=== PATIENT | female | born 1970 | race Caucasian/White ===

== ENCOUNTER → 2016-08-28 | Outpatient (CLI) | payer OTHER ==
[~2016-08-28] MED LIST: AMLO10TA PO; B-COTAB27 PO; CALC600T10 PO; CELE-19 PO; CRES20TA PO; CYCL10TA PO; DULC5TAB PO; HYDR-3713 PO; LISI-538 PO; METF-415 PO; METHACHOLINE KIT (J7674) INH ONE; MILKSUS PO; MYLI40DR PO; NEUR600T PO; OXYC-517 PO; PRIL40CA PO; SENO8.6T2 PO; TYLE325T5 PO; VITA500055 PO; VITMTA PO
== END ==
LOC: M CARPUL 13:33
PROVIDERS: ATTEND Internal Medicine Pulmonary Disease
DX: R06.00 Dyspnea, unspecified (principal)

== ENCOUNTER → 2016-09-13 | Outpatient (CLI) | payer OTHER ==
[~2016-09-13] MED LIST changes: -METHACHOLINE KIT (J7674) INH ONE
[2016-09-13 19:08] LABS: ANION GAP 8 MEQ/L (8-16); BLOOD UREA NITROGEN 10 MG/DL (7-18); CALCIUM LEVEL 8.6 MG/DL (8.5-10.1); CARBON DIOXIDE LEVEL 26 MEQ/L (21-32); CHLORIDE LEVEL 105 MEQ/L (98-107); CHOLESTEROL LEVEL 187 MG/DL (<200); CREATININE FOR GFR 0.77 MG/DL (0.55-1.02); GLOMERULAR FILTRATION RATE > 60.0 (>58); GLUCOSE, FASTING 74 MG/DL (70-105); POTASSIUM SERUM 4.3 MEQ/L (3.5-5.1); SODIUM LEVEL 139 MEQ/L (136-145); TRIGLYCERIDES LEVEL 182 MG/DL (<150)
== END ==
LOC: M WUC 11:10
PROVIDERS: ATTEND Physician Assistant Medical
DX: E78.00 Pure hypercholesterolemia, unspecified (principal); E55.9 Vitamin D deficiency, unspecified; E11.65 Type 2 diabetes mellitus with hyperglycemia

== ENCOUNTER → 2016-09-17 | Outpatient (REF) | payer OTHER | LOC: M LAB REF 12:28 | PROVIDERS: ATTEND Physician Assistant Medical | DX: E78.00 Pure hypercholesterolemia, unspecified (principal); E55.9 Vitamin D deficiency, unspecified; E11.65 Type 2 diabetes mellitus with hyperglycemia ==

== ENCOUNTER 2016-10-26 11:58 | Emergency (ER) | payer OTHER ==
[~2016-10-26] VITALS: Ht 172.7 cm; Wt 98.9 kg
[2016-10-26] MEDS ORDERED: NS 1,000 ML IV ONE (13:30)
[2016-10-26 13:38] LABS: CONTROL LINE UCG INT CTR LINE PRESENT
[2016-10-26 13:59] LABS: BASO % 0.2 % (0.0-1.0); EOS # 0.4 K/mm3 (0.0-0.50); EOS % 3.5 % (0.0-3.0); LARGE UNSTAINED CELL # 0.2 K/mm3 (0.0-0.4); LARGE UNSTAINED CELL % 1.4 % (0.0-4.0); LYMPH % 23.2 % (24.0-44.0); MEAN CORPUSCULAR HEMOGLOBIN 27.7 pg (27.0-33.0); MEAN CORPUSCULAR HGB CONC 31.9 g/dl (32.0-36.5); MONO # 0.4 K/mm3 (0.0-0.8); MONO % 2.9 % (0.0-5.0); NEUTROPHILS # 8.9 K/mm3 (1.8-7.7); NEUTROPHILS % 68.9 % (36.0-66.0); PLATELET COUNT, AUTOMATED 413 k/mm3 (150-450); WHITE BLOOD COUNT 12.9 K/mm3 (4.0-10.0)
[2016-10-26 14:19] LABS: ALBUMIN 3.1 GM/DL (3.2-5.2); ALBUMIN/GLOBULIN RATIO 0.61 (1.00-1.93); ALKALINE PHOSPHATASE 93 U/L (45-117); ALT/SGPT 16 U/L (12-78); ANION GAP 7 MEQ/L (8-16); AST/SGOT 16 U/L (15-37); BILIRUBIN,DIRECT < 0.1 MG/DL (0.0-0.2); BILIRUBIN,TOTAL 0.3 MG/DL (0.2-1.0); BLOOD UREA NITROGEN 11 MG/DL (7-18); CALCIUM LEVEL 8.7 MG/DL (8.5-10.1); CARBON DIOXIDE LEVEL 26 MEQ/L (21-32); CHLORIDE LEVEL 103 MEQ/L (98-107); CREATININE FOR GFR 0.95 MG/DL (0.55-1.02); GLOMERULAR FILTRATION RATE > 60.0 (>58); GLUCOSE, FASTING 78 MG/DL (70-105); POTASSIUM SERUM 3.8 MEQ/L (3.5-5.1); SODIUM LEVEL 136 MEQ/L (136-145); TOTAL PROTEIN 8.2 GM/DL (6.4-8.2)
[2016-10-26] MEDS ORDERED: ISOVUE-370 76% 100ML VIAL (Q9967) As Ordered ONE (14:24)
[2016-10-26] MEDS ORDERED: KETOROLAC 30 MG/ML VIAL (J1885) IV ONE (15:15)
[2016-10-26 15:31] VITALS: BP 112/77
--- NOTE | 2016-10-26 16:05 | REP ---
CT ABDOMEN PELVIS WITH IV CONTRAST: 10/26/2016. Comparison: 06/19/2015. Clinical history: Right lower quadrant pain. Technique: The patient received a bolus 100 mL some [id number] scanning through the abdomen pelvis with coronal and sagittal reconstructions. Findings:CT abdomen: Lung bases were clear. Heart is not enlarged. There is no pericardial thickening or effusion. Liver and spleen show no focal mass. There are clips from prior cholecystectomy. No adjacent ascites. There is one tiny hepatic hypodensity about 5 mm right hepatic lobe near the dome of the diaphragm and unchanged from 2015. No ascites about the liver or spleen. Adrenal glands are normal. Pancreas shows no mass, ductal dilatation or inflammatory change. No adjacent fluid/adenopathy. Kidneys shows more horizontal orientation of the right kidney rotated on this short axis. The kidney measures 11.5 cm. Right kidney 11.6 cm. Both measured on the sagittal reconstructions. No hydronephrosis, stone or solid mass. Small bowel loops without dilatation, partly fluid-filled. No inflammatory changes or infiltration of the mesentery. The aorta is without aneurysm. No pathologic sized periaortic or mesenteric adenopathy. Colon shows stool and gas without signs of colitis or diverticulitis in the abdomen proper. A few scattered diverticula in the left colon. Bone windows show minor degenerative changes without compression deformity of destructive lesion. There is no spondylolysis or spondylolisthesis. Visualized ribs show no focal lesion. CT pelvis: Sacrum, SI joints, and iliac bones were intact and acetabula show as rim osteophytes. Degenerative changes to the lumbosacral junction and symphysis pubis, pubic rami and the hips with no gross abnormality. Uterus anteverted, not enlarged. Bladder only partially filled but without dilatation, stone or mass. No wall thickening. Adnexa appear symmetric. There is again suggested be a cyst in the right adnexal region 2.9 cm. On the previous study it measured about a 4.3 cm. No pelvic free fluid in the cul-de-sac. No pelvic adenopathy. A few scattered diverticula in the left colon and sigmoid without signs of colitis or diverticulitis. No ventral or inguinal hernia nor pathologic sized inguinal adenopathy. Impression: 1. 2.9 cm right adnexal cyst likely ovarian without pelvic free fluid. This is smaller than the 4.7 cm cyst that I measure on the previous study. No ascites, free air, or adenopathy. 2. No pelvic free fluid, adenopathy or mass in the pelvis. Uterus unremarkable, anteverted and the bladder intact. 3. No renal, ureteral or bladder stone. 4. Status post cholecystectomy, the liver, spleen, adrenal glands and kidneys are without acute finding. Signed by Dima Velazquez MD 10/26/2016 04:34 P
== END 2016-10-26 15:33 | disposition home or self-care (01) ==
LOC: M ED 13:05
DX: R10.31 Right lower quadrant pain (principal); N83.01 Follicular cyst of right ovary; R19.7 Diarrhea, unspecified; I10 Essential (primary) hypertension; Z98.890 Other specified postprocedural states; Z79.899 Other long term (current) drug therapy; Z79.84 Long term (current) use of oral hypoglycemic drugs
CPT/HCPCS: 74177; 80048; 80076; 81001; 83690; 84703; 85025; 96374; 99282; J1885; Q9967

== ENCOUNTER → 2016-12-14 | Outpatient (CLI) | payer OTHER ==
--- NOTE | 2016-12-14 16:15 | REP ---
PELVIC ULTRASOUND: Real-time sonographic evaluation of the pelvis performed utilizing transabdominal and endovaginal technique. The bladder measures 5.4 x 4.0 x 6.1 cm. Uterus measures 9.0 x 3.6 x 4.4 cm. Endometrial thickness is 4 mm with no endometrial fluid collection. Right ovary measures 3.1 x 1.6 x 1.9 cm and left ovary 3.9 x 2.4 x 2.9 cm. Two follicles in the right ovary measure 17 and 5 mm. A dominant follicle in the left ovary measures 2.1 cm. There is no other evidence of adnexal mass or free fluid. IMPRESSION: Essentially negative pelvic ultrasound. Similar findings to prior study of 10/28/2015.
== END ==
LOC: M WHC 13:57
PROVIDERS: ATTEND Nurse Practitioner Family
DX: N83.201 Unspecified ovarian cyst, right side (principal)

== ENCOUNTER 2017-04-04 19:36 | Observation (INO) | payer OTHER ==
[~2017-04-04] VITALS: Ht 172.7 cm; Wt 97.7 kg
[~2017-04-04 19:36] MED LIST changes: -CALC600T10 PO; +CALC600T31 PO; -CELE-19 PO; +CELE1CAP4 PO; -SENO8.6T2 PO; +SENO8.6T5 PO
[2017-04-04] MEDS ORDERED: TRUL0.5I SC (19:48)
[2017-04-05] MEDS ORDERED: GASTROGRAFIN SOLUTION 30ML (Q9963) PO ONE (00:45)
[2017-04-05] MEDS ORDERED: KETOROLAC 30 MG/ML VIAL (J1885) IV ONE (01:00)
[2017-04-05] MEDS ORDERED: MORPHINE 4 MG/ML 1ML SYRINGE IV ONE (01:00)
[2017-04-05] MEDS ORDERED: GASTROGRAFIN SOLUTION 30ML PO ONE (01:15)
[2017-04-05 01:22] LABS: BASO # 0.1 K/mm3 (0.0-0.2); BASO % 0.5 % (0.0-1.0); EOS # 0.4 K/mm3 (0.0-0.50); EOS % 3.2 % (0.0-3.0); LARGE UNSTAINED CELL # 0.2 K/mm3 (0.0-0.4); LARGE UNSTAINED CELL % 1.6 % (0.0-4.0); LYMPH % 22.7 % (24.0-44.0); MEAN CORPUSCULAR VOLUME 85.5 fl (80.0-96.0); MONO # 0.5 K/mm3 (0.0-0.8); MONO % 3.7 % (0.0-5.0); NEUTROPHILS # 8.9 K/mm3 (1.8-7.7); NEUTROPHILS % 68.4 % (36.0-66.0); PLATELET COUNT, AUTOMATED 396 k/mm3 (150-450)
[2017-04-05 01:43] LABS: ALBUMIN 2.7 GM/DL (3.2-5.2); ALBUMIN/GLOBULIN RATIO 0.56 (1.00-1.93); ALKALINE PHOSPHATASE 85 U/L (45-117); ALT/SGPT 16 U/L (12-78); AMYLASE 36 U/L (25-115); ANION GAP 3 MEQ/L (8-16); AST/SGOT 10 U/L (15-37); BILIRUBIN,DIRECT < 0.1 MG/DL (0.0-0.2); BILIRUBIN,TOTAL 0.2 MG/DL (0.2-1.0); BLOOD UREA NITROGEN 7 MG/DL (7-18); CALCIUM LEVEL 8.5 MG/DL (8.5-10.1); CARBON DIOXIDE LEVEL 30 MEQ/L (21-32); CHLORIDE LEVEL 105 MEQ/L (98-107); GLOMERULAR FILTRATION RATE > 60.0 (>58); GLUCOSE, FASTING 108 MG/DL (70-105); POTASSIUM SERUM 4.1 MEQ/L (3.5-5.1); SODIUM LEVEL 138 MEQ/L (136-145); TOTAL PROTEIN 7.5 GM/DL (6.4-8.2)
[2017-04-05] MEDS ORDERED: HYDROmorphone HCL 1 MG/ML SYRINGE (J1170) IV ONE ×2 (02:15→04:15)
[2017-04-05] MEDS ORDERED: ISOVUE-370 76% 100ML VIAL (Q9967) As Ordered ONE (02:39)
--- NOTE | 2017-04-05 03:50 | REPUSA ---
CLINICAL HISTORY: Abdominal pain. TECHNIQUE: Multiple axial, sagittal and coronal CT images were obtained through the abdomen and pelvi s after administration of oral and intravenous contrast material. COMMENTS: Comparison to the prior exam on 10/26/2016. 4.1 cm left ovarian cyst. Fat stranding in the anterior aspect of the pelvic fat. The liver is of uniform attenuation without mass or defect. There is no intra or extrahepatic biliary ductal dilatation. The spleen is normal. The gallbladder is surgically absent. The pancreas is of no rmal contour and attenuation characteristics. There is no evidence of adrenal mass. Both kidneys demonstrate prompt and equal nephrograms. The kidneys are normal in size, shape and conf iguration. There is no evidence of renal or ureteral mass. No renal or ureteral calculi are identifie d. There is no hydroureter or hydronephrosis. No evidence for appendicitis. There is no bowel wall thickening. No evidence for small or large ebony l obstruction. There is no evidence of abdominal ascites or lymphadenopathy. There is no evidence of intrinsic or extrinsic bladder mass. There is no pelvic ascites or lymphadeno tawanda. Images of the lung bases show no evidence of pleural or parenchymal mass. There are no pleural effusi ons. The bony structures are free of lytic or blastic lesions. Multilevel degenerative changes are seen in volving the thoracolumbar spine. Scattered calcifications are seen involving the aorta and major bran ches compatible with atherosclerosis. IMPRESSION: Fat stranding in the anterior aspect of the pelvic fat. Probably secondary to omental infarction. Thi s was not present on prior exam. Unremarkable bowels. Left ovarian cyst. This was not present on prior exam. Thank you for your kind referral of this patient.
[2017-04-05] MEDS ORDERED: NS 1,000 ML IV ONE (04:15)
[2017-04-05] MEDS ORDERED: ALBU17IN INH (04:52)
[2017-04-05] MEDS ORDERED: MAGN500T2 PO (04:52)
[2017-04-05] MEDS ORDERED: METF-699 PO (04:52)
[2017-04-05] MEDS ORDERED: VITA10006 PO (04:52)
[2017-04-05] MEDS ORDERED: ZINC100T2 PO (04:52)
[2017-04-05] MEDS ORDERED: ARNU1INH3 INH (04:52)
[2017-04-05] MEDS ORDERED: LISI30TA4 PO (04:52)
[2017-04-05] MEDS ORDERED: LISINOPRIL 10 MG TAB PO ONE (05:00)
[2017-04-05] MEDS ORDERED: ALBUTEROL 90 MCG/ACT 8GM HFA INHALER INH PRN (05:00)
[2017-04-05] MEDS ORDERED: ACETAMINOPHEN TAB 650MG DOSE (2X325MG) PO PRN (05:00)
[2017-04-05] MEDS ORDERED: ONDANSETRON 4MG/2ML VIAL (J2405) IV PRN (05:00)
--- NOTE | 2017-04-05 05:21 | HPE ---
DATE OF ADMISSION: 04/04/2017 HISTORY OF PRESENT ILLNESS: A 46-year-old obese white female who came to the emergency room with abdominal pain. Pain she has is mostly centered in the right lower quadrant. Symptoms began last Saturday while at a golf tournament. They began insidiously and have reached their maximum intensity but have not abated at all. She came to the emergency room this evening because the pain was interfering with her ability to do her daily activities including perform her job. She has had some nausea but no vomiting. She has had no bowel symptoms. She did have a CT of the abdomen and pelvis which showed fat stranding in the anterior aspect of the pelvic fat, probably secondary to omental infarction. Incidentally, she has not had any fever or chills. Her blood pressure is stable (history of hypertension), and her laboratory is unremarkable. Her white blood cell (WBC) count is 13,000. She does have mild normochromic, normocytic anemia. MEDICATIONS: She takes a lot of vitamin supplements - lisinopril 20 mg a day - metformin 2000 mg a day which she has not taken this week I believe - multivitamin - Crestor 20 mg - Trulicity weekly which she takes on Saturday or Saturday PAST MEDICAL/SURGICAL HISTORY: 1. Diabetes. 2. Hypertension. 3. Hyperlipidemia. 4. Detached retina. 5. 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 6. Arthroscopic surgery on her knee. 7. History of ovarian cyst. 8. She had mesh for bladder incontinence, which has been removed partially. 9. She has had cholecystectomy. ALLERGIES: None to medications. SOCIAL HISTORY: No alcohol or tobacco, except alcohol maybe on Saturday nights. FAMILY HISTORY: Dad had a myocardial infarction (OR) at age 40. Grandmother had metastatic breast cancer. Grandfather had a gastrointestinal (GI) malignancy. REVIEW OF SYSTEMS: GENERAL: No fever or chills. HEENT: Negative. CARDIOPULMONARY: Negative. GI: As discussed above. GENITOURINARY (): Chronic urinary incontinence. MUSCULOSKELETAL: Negative. VASCULAR: Negative. HEMATOLOGIC: Negative. PSYCHIATRIC: Negative. DERMATOLOGIC: Negative. PHYSICAL EXAMINATION: VITAL SIGNS: Blood pressure is 150/70, pulse 84 and regular, respirations are 16, temperature afebrile. GENERAL APPEARANCE: Obese white female. HEENT: Unremarkable. Dentition is good. NECK: Full, difficult to assess neck veins. Carotid upstrokes are normal. No bruits. HEART: Regular with a systolic murmur. CHEST: Clear. ABDOMEN: Some mild tenderness to deep palpation right lower quadrant; otherwise unremarkable. No peritoneal signs. EXTREMITIES: Without clubbing, cyanosis or edema. NEUROLOGIC: Intact. IMPRESSION/PLAN: 1. Omental infarction. Plan intravenous (IV) fluids and pain control. 2. Diabetes. Her metformin is on hold. She last took Trulicity on Saturday of this past week. Will check fingersticks twice a day. Her diabetes seems to be very mild. In fact, her admitting sugar is only 108. 3. Hypertension. Will continue her lisinopril. 4. Lipids. She is on Crestor. We will hold that until discharge. 5. Ovarian cyst. Incidental finding. 6. Mild anemia. Follows with Dr. Walden.
[2017-04-05 05:46] VITALS: BP 156/77
[2017-04-05 06:00] VITALS: BP 156/77
[2017-04-05 06:30] LABS: MEAN CORPUSCULAR HEMOGLOBIN 29.2 pg (27.0-33.0); MEAN CORPUSCULAR HGB CONC 34.2 g/dl (32.0-36.5); MEAN CORPUSCULAR VOLUME 85.5 fl (80.0-96.0); RED CELL DISTRIBUTION WIDTH 13.1 % (11.5-14.5); WHITE BLOOD COUNT 11.9 K/mm3 (4.0-10.0)
[2017-04-05 06:49] LABS: ANION GAP 10 MEQ/L (8-16); BLOOD UREA NITROGEN 8 MG/DL (7-18); CALCIUM LEVEL 7.8 MG/DL (8.5-10.1); CARBON DIOXIDE LEVEL 22 MEQ/L (21-32); CHLORIDE LEVEL 109 MEQ/L (98-107); GLOMERULAR FILTRATION RATE > 60.0 (>58); GLUCOSE, FASTING 112 MG/DL (70-105); POTASSIUM SERUM 4.1 MEQ/L (3.5-5.1); SODIUM LEVEL 141 MEQ/L (136-145)
[2017-04-05] MEDS: NORCO, ANEXSIA 5/325MG TABLET (HYDROcodone/ACETAMINOPHEN) PO PRN ×4 (06:52→22:33)
[2017-04-05] MEDS ORDERED: FLUTICASONE HFA 220 MCG 12 GM INHALER (FLOVENT) INH SCH (09:00)
--- NOTE | 2017-04-05 09:20 | CR.PDOC ---
[facility] Consultation Consultation DATE OF CONSULTATION: Apr 04, 2017 at 19:36 REFERRING PROVIDER: Dr. Cantor ATTENDING PHYSICIAN: Dr. Cronin REASON FOR CONSULTATION/CHIEF COMPLAINT: Omental infarction. HISTORY OF PRESENT ILLNESS: 46-year-old white female came to emergency room with abdominal pain. The pain is located on her left side of her abdomen. The pain started Saturday morning, as a crampy abdominal pain that progressively worsened throughout the day. She later attended a golf tournament and her pain worsened as the tournament processed. Pain is made worse with lying still, moving, going up stairs, coughing, bending over and, sneezing. She came to emergency room because the pain was affecting her activities of daily living. While in the emergency room, a CT abdomen and pelvis showed fat stranding in the anterior aspect of, probable secondary omental infarction. ALLERGIES: Please see below. HOME MEDICATIONS: Please see below. PAST MEDICAL HISTORY: Diabetes Hypertension Hyperlipidemia Detached retina PAST SURGICAL HISTORY: Arthroscopic surgery of the jaw. TMJ Arthroscopic surgery of the knee History ovarian cysts She had a mesh for bladder incontinence which has been removed partially Cholecystectomy FAMILY HISTORY: Father had [place] at age 40, grandmother had metastatic breast cancer. Grandfather had gastrointestinal malignancies SOCIAL HISTORY: No tobacco, alcohol may be on Saturday nights REVIEW OF SYSTEMS: CONSTITUTIONAL: Nice fevers, chills, night sweats CARDIOVASCULAR: Denies any chest pains denies palpitation RESPIRATORY: Denies any breathing difficulties MUSCULOSKELETAL; admits to abdominal pain GASTROINTESTINAL: Denies any urinary issues SKIN: No rashes or bruises HEMATOLOGIC/LYMPHATIC: Denies any bleeding disorder ALLERGIC/IMMUNOLOGIC: Mrs. cheung denies allergies, leading to violent sneezes PHYSICAL EXAMINATION: VITAL SIGNS: Please see below. GENERAL APPEARANCE: Alert, oriented, resting comfortably in bed. RESPIRATORY: Clear to auscultate bilaterally anterior and posterior CARDIOVASCULAR: S1 and S2 present, no murmurs, rubs, no gallops ABDOMEN: Tender to palpate on left abdominal rectus muscle. Pain is throughout the entire left abdominal rectus muscle but it is worse in the lower rectus EXTREMITIES: Moving, no deformities, no swelling. NEUROLOGICAL: No tingling or numbness LABORATORY DATA: Please see below. IMAGING: CT Abdomen: Fat stranding in the anterior aspect of the pelvic fat. Probably secondary to omental infarction. This was not present on prior exam. Unremarkable bowels. Left ovarian cyst. This was not present on prior exam. ASSESSMENT/PLAN: 46-year-old woman presents with abdominal pain, that started on Saturday and has been progressively getting worse. Pain seemed to have been exacerbated by golfing tournament. CT showed fat stranding on the anterior aspect of the pelvic fat, probable secondary to omental infarction. Etiology of the pain could possibly be musculoskeletal in origin, perhaps an left abdominal rectus muscle tear, quite possibly from sneezing. She describes her sneezes as whole body violent squeezes. The tear could have subsequently have been made worse by her golfing. And thus leading to a slight hematoma on the anterior aspect of her abdomin. Or the fat stranding, possibly have stemmed from an omental infarction. In either case there are no surgical intervention recommended at this point. Both of these situations would be treated conservatively, as the pain will resolve over time. My recommendations at this point are pain control, while monitored for signs of infection. If patient develop a fever, or an increased white count, or anyother signs of infections.This could mean an abscess formation in the abdomen. At which point a CT guided drainage abscess would be recommended. No antibiotics are recommended at this point. Patient can be discharged when comfortable and there are no signs of infection. Follow-up when necessary. Thanks for involving Surgery in the care of this patient Vital Signs/I&O Vital Signs Date Time Temp Pulse Resp B/P (MAP) Pulse Ox O2 Delivery O2 Flow Rate FiO2 04/05/17 07:22 16 04/05/17 06:55 Room Air 04/05/17 06:53 156/77 04/05/17 06:00 97.0 86 98 I&O- Last 24 Hours up to 6 AM 04/06/17 06:00 Intake Total 360 ml Balance 360 ml Laboratory Data Labs 24H Laboratory Tests 2 04/05/17 01:07: White Blood Count 13.0H, Red Blood Count 4.09, Hemoglobin 11.9L, Hematocrit 35.0L, Mean Corpuscular Volume 85.5, Mean Corpuscular Hemoglobin 29.0, Mean Corpuscular Hemoglobin Concent 34.0, Red Cell Distribution Width 13.0, Platelet Count 396, Neutrophils (%) (Auto) 68.4H, Lymphocytes (%) (Auto) 22.7L, Monocytes (%) (Auto) 3.7, Eosinophils (%) (Auto) 3.2H, Basophils (%) (Auto) 0.5 , Neutrophils # (Auto) 8.9H, Lymphocytes # (Auto) 3.0, Monocytes # (Auto) 0.5, Eosinophils # (Auto) 0.4, Basophils # (Auto) 0.1, Large Unclassified Cells % 1.6 , Large Unclassified Cells # 0.2, Anion Gap 3L, Glomerular Filtration Rate > 60.0, Lactic Acid Level 0.6, Calcium Level 8.5, Aspartate Amino Transf (AST/SGOT ) 10L, Alanine Aminotransferase (ALT/SGPT) 16, Alkaline Phosphatase 85, Total Bilirubin 0.2, Direct Bilirubin < 0.1, Total Protein 7.5, Albumin 2.7L, Albumin/ Globulin Ratio 0.56L, Amylase Level 36, Lipase 102 04/05/17 01:19: Urine Appearance CLEAR, Urine Color STRAW, Urine pH 6.0, Urine Specific [place] 1.004, Urine Protein NEGATIVE, Urine Glucose (UA) NEGATIVE, Urine Ketones NEGATIVE, Urine Urobilinogen 0.2, Urine Bilirubin NEGATIVE, Urine Leukocyte Esterase 1+H, Urine Blood 1+H, Urine Nitrite NEGATIVE, Urine WBC (Auto) 8H, Urine RBC (Auto) 2, Urine Hyaline Casts (Auto) 0, Urine Bacteria (Auto) 3+H, Urine Squamous Epithelial Cells 2, Urine Amorphous Sediment SMALLH, Urine Sperm (Auto) 04/05/17 06:07: Anion Gap 10, Glomerular Filtration Rate > 60.0, Calcium Level 7.8L, Blood Urea Nitrogen 8, Creatinine 0.70, Sodium Level 141, Potassium Level 4.1, Chloride Level 109H, Carbon Dioxide Level 22 CBC/BMP Laboratory Tests 04/05/17 01:07 Red Blood Count 4.09, Mean Corpuscular Volume 85.5, Mean Corpuscular Hemoglobin 29.0, Mean Corpuscular Hemoglobin Concent 34.0, Red Cell Distribution Width 13.0 , Neutrophils (%) (Auto) 68.4 H, Lymphocytes (%) (Auto) 22.7 L, Monocytes (%) ( Auto) 3.7, Eosinophils (%) (Auto) 3.2 H, Basophils (%) (Auto) 0.5, Neutrophils # (Auto) 8.9 H, Lymphocytes # (Auto) 3.0, Monocytes # (Auto) 0.5, Eosinophils # (Auto) 0.4, Basophils # (Auto) 0.1 04/05/17 06:07 Red Blood Count 3.93 L, Mean Corpuscular Volume 85.5, Mean Corpuscular Hemoglobin 29.2, Mean Corpuscular Hemoglobin Concent 34.2, Red Cell Distribution Width 13.1, Calcium Level 7.8 L Allergies Coded Allergies: No Known Allergies (Unverified , 06/15/15) Home Medications Scheduled (B-Complex) 1 Tab Tab, 1 TAB PO DAILY, (Reported) (Trulicity) 1.5 Mg/0.5 Ml Inj, 1.5 MG SC ASDIRECTED, (Reported) ONCE A WEEK ON EITHER SATURDAY OR SATURDAY (Arnuity Ellipta) 200 Mcg/Act Inh, 200 MCG INH DAILY, (Reported) Ascorbic Acid (Vitamin C) 1,000 Mg Tab, 1,000 MG PO DAILY, (Reported) Cholecalciferol (Vitamin D3) 5,000 Unit Tab, 5,000 UNIT PO QHS, (Reported) Lisinopril (Lisinopril) 30 Mg Tab, 30 MG PO QHS, (Reported) Magnesium Oxide (Magnesium) 500 Mg Tab, 1,000 MG PO DAILY, (Reported) Metformin Hydrochloride (Metformin HCl ER) 500 Mg Tab, 2,000 MG PO DAILY, ( Reported) Multivitamins *[facility] STOCKED* (Thera M Plus *[facility] STOCKED*) 1 Tab Tab, 1 TAB PO DAILY, (Reported) Rosuvastatin Calcium (Crestor) 20 Mg Tab, 20 MG PO QHS, (Reported) Zinc (Zinc) 100 Mg Tab, 100 MG PO DAILY, (Reported) Scheduled PRN (Senna Plus 8.6-50 mg) 1 Tab Tab, 1 TAB PO BIDP PRN for CONSTIPATION, #60 Acetaminophen/Hydrocodone ([place], Anexsia 5/325) 1 Tab Tab, 2 TAB PO Q4HP PRN for SEVERE PAIN (PS 8-10), #36 Albuterol Sulfate (Ventolin Hfa) 200 Puff/8 Gm Aers, 2 PUFF INH Q4H PRN for SHORTNESS OF BREATH, (Reported) GME ATTESTATION GME ATTESTATION My preceptor for this patient encounter was physically present in the building during the encounter and was fully available. As needed, all aspects of the patient interview, examination, medical decision making process, and medical care plan development were reviewed and approved by the preceptor. Preceptor is aware and concurs with the plan as stated in the body of this note and will attest to such by his/her cosignature. AMISHA ESTRADA DO Apr 05, 2017 09:20
[2017-04-05] MEDS: KETOROLAC 30 MG/ML VIAL (J1885) IV PRN ×2 (09:39→16:27)
[2017-04-05] MEDS ORDERED: MOM 30ML SUSPENSION UDC PO PRN (12:30)
[2017-04-05] MEDS ORDERED: SENOKOT S TAB PO PRN (12:30)
[2017-04-05 13:49] LABS: INR 1.02
[2017-04-05 14:00] VITALS: BP 160/85
[2017-04-05 20:18] VITALS: BP 138/78
[2017-04-05] MEDS ORDERED: LISINOPRIL 10 MG TAB PO SCH (21:00)
[2017-04-05 22:00] VITALS: BP 138/78
[2017-04-06] MEDS: NORCO, ANEXSIA 5/325MG TABLET (HYDROcodone/ACETAMINOPHEN) PO PRN ×2 (02:35→07:56)
[2017-04-06 05:47] LABS: MEAN CORPUSCULAR HEMOGLOBIN 28.8 pg (27.0-33.0); MEAN CORPUSCULAR HGB CONC 33.5 g/dl (32.0-36.5); MEAN CORPUSCULAR VOLUME 85.9 fl (80.0-96.0); RED CELL DISTRIBUTION WIDTH 12.9 % (11.5-14.5); WHITE BLOOD COUNT 9.9 K/mm3 (4.0-10.0)
[2017-04-06 06:00] VITALS: BP 137/76
[2017-04-06 06:02] LABS: ANION GAP 8 MEQ/L (8-16); BLOOD UREA NITROGEN 9 MG/DL (7-18); CALCIUM LEVEL 8.6 MG/DL (8.5-10.1); CARBON DIOXIDE LEVEL 28 MEQ/L (21-32); CHLORIDE LEVEL 107 MEQ/L (98-107); CREATININE FOR GFR 0.72 MG/DL (0.55-1.02); GLOMERULAR FILTRATION RATE > 60.0 (>58); GLUCOSE, FASTING 95 MG/DL (70-105); POTASSIUM SERUM 4.2 MEQ/L (3.5-5.1); SODIUM LEVEL 143 MEQ/L (136-145)
[2017-04-06] MEDS ORDERED: SENN1TAB2 PO (10:28)
[2017-04-06] MEDS ORDERED: NORCOTAB PO (10:28)
--- NOTE | 2017-04-06 11:04 | IPNPDOC ---
Date Seen The patient was seen on 04/06/17. Progress Note SUBJECTIVE: HISTORY OF PRESENT ILLNESS: 46-year-old white female came to emergency room with abdominal pain. The pain is located on her left side of her abdomen. The pain started Saturday morning, as a crampy abdominal pain that progressively worsened throughout the day. She later attended a golf tournament and her pain worsened as the tournament processed. Pain is made worse with lying still, moving, going up stairs, coughing, bending over and, sneezing. She came to emergency room because the pain was affecting her activities of daily living. While in the emergency room, a CT abdomen and pelvis showed fat stranding in the anterior aspect of, probable secondary omental infarction.Surgery was consulted as a resort for evaluation of the abdominal pain. This morning, patient said her pain is improving. She states that her pain medication is working, and that she would has an extremely difficult time moving without it. OBJECTIVE PHYSICAL EXAMINATION: VITAL SIGNS: Please see below. VITAL SIGNS: Please see below. GENERAL APPEARANCE: Alert, oriented, resting comfortably in bed. RESPIRATORY: Clear to auscultate bilaterally anterior and posterior CARDIOVASCULAR: S1 and S2 present, no murmurs, rubs, no gallops ABDOMEN: Tender to palpate on left abdominal rectus muscle. Pain is throughout the entire left abdominal rectus muscle but it is worse in the lower rectus. Pain has improve since yesterday. EXTREMITIES: Moving, no deformities, no swelling. NEUROLOGICAL: No tingling or numbness LABORATORY DATA: Please see below. MICROBIOLOGY: Please see below. IMAGING: CT Abdomen: Fat stranding in the anterior aspect of the pelvic fat. Probably secondary to omental infarction. This was not present on prior exam. Unremarkable bowels.Left ovarian cyst. This was not present on prior exam. ASSESSMENT AND PLAN: 46-year-old woman presents with abdominal pain, Pain seemed to have been exacerbated by golfing tournament. CT showed fat stranding on the anterior aspect of the pelvic fat, probable secondary to omental infarction. Etiology of the pain could possibly be musculoskeletal in origin, from a left rectus muscle tear. Treatment for both are pain control and restriction of heavy lifting, with activity as tolerated. Patient is ambulating and is tolerating a regular diet. Patient from a surgical standpoint is clear. Patient can be discharge once pain is control and there are not clinical signs of infection. Patient should be advised that no heavy lifting for a least a week and she is advance her activities as tolerated. VS, I&O, 24H, Fishbone Vital Signs/I&O Vital Signs Date Time Temp Pulse Resp B/P (MAP) Pulse Ox O2 Delivery O2 Flow Rate FiO2 04/06/17 08:45 17 04/06/17 06:00 96.3 78 137/76 (96) 96 Room Air Laboratory Data 24H LABS Laboratory Tests 2 04/05/17 12:34: 04/05/17 12:45: Erythrocyte Sedimentation Rate 61H, Prothrombin Time 13.5, Prothromb Time International Ratio 1.02, Activated Partial Thromboplast Time 30.9, C-Reactive Protein, Quantitative 3.13H 04/06/17 05:26: Anion Gap 8, Glomerular Filtration Rate > 60.0, Blood Urea Nitrogen 9, Creatinine 0.72, Sodium Level 143, Potassium Level 4.2, Chloride Level 107, Carbon Dioxide Level 28, Calcium Level 8.6 CBC/BMP Laboratory Tests 04/06/17 05:26 Red Blood Count 3.95 L, Mean Corpuscular Volume 85.9, Mean Corpuscular Hemoglobin 28.8, Mean Corpuscular Hemoglobin Concent 33.5, Red Cell Distribution Width 12.9, Calcium Level 8.6 GME ATTESTATION GME ATTESTATION My preceptor for this patient encounter was physically present in the building during the encounter and was fully available. As needed, all aspects of the patient interview, examination, medical decision making process, and medical care plan development were reviewed and approved by the preceptor. Preceptor is aware and concurs with the plan as stated in the body of this note and will attest to such by his/her cosignature. AMISHA ESTRADA DO Apr 06, 2017 10:44
--- NOTE | 2017-04-06 16:31 | DSES ---
DATE OF ADMISSION: 04/04/2017 DATE OF DISCHARGE: 04/06/2017 DISCHARGE DIAGNOSIS: Omental infarction. SECONDARY DIAGNOSES: 1. Rectus abdominous muscle tear. 2. Diabetes. 3. Hypertension. 4. Possible hypocoagulable disorder. HOSPITAL COURSE: The patient is a 46-year-old female who presented to the hospital on 04/04/2017 for right lower quadrant abdominal pain. The patient had previously had left lower quadrant abdominal pain and was diagnosed with an ovarian cyst. She was concerned it may have been something similar on this occasion; however, the pain intensified and was severe, to the point she was unable to participate in a golf tournament, which prompted her to present to the emergency room. In the emergency room, she did have a CT scan of the abdomen and pelvis completed, which revealed fat stranding in the anterior aspect of the pelvic fat, probably secondary to omental infarction that was not present on her previous exam. She also had a mild left ovarian cyst, which was not on the previous exam. She previously had a right ovarian cyst. She recently had a fairly unremarkable pelvic ultrasound. She was admitted to the medical service and was seen by Dr. Savage, of general surgery, who expressed concern that this may have also been musculoskeletal in origin, from a right rectus muscle tear. Surgery has suggested pain control and avoiding heavy lifting. The patient was provided with pain control. She was tolerating a regular diet and at this time her pain is controlled by oral medications. SUBJECTIVE: This morning, the patient tells me that she feels well and wants to go home. She has no complaints. No chest pain, fever, chills, nausea, vomiting or diarrhea. OBJECTIVE: VITAL SIGNS: Temperature 96.3, pulse 78, respiratory 18, blood pressure 137/76, oxygen saturation 96% on room air. GENERAL: She is a pleasant, obese, middle-aged female sitting up in bed. She is not in any acute distress. HEENT: Cranial nerves II-XII are grossly intact. She has moist mucous membranes. No elevation of central venous pressure (CVP). CARDIOVASCULAR EXAM: S1, S2. Regular. RESPIRATORY EXAM: Clear. ABDOMINAL EXAM: Bowels sounds present. The abdomen is soft. It is less tender to palpation. EXTREMITIES: No clubbing, cyanosis or edema. LABORATORY STUDIES: WBC 9.9, resolved of leukocytosis, hemoglobin 11.4, hematocrit 34, platelet count 382. Chemistry panel: Sodium 143, potassium 4.2, chloride 107, bicarbonate 28, BUN 9, creatinine 0.7. Hypocoagulable workup was sent. Imaging as outlined above. ASSESSMENT AND PLAN: This is a 46-year-old female with omental infarction versus rectus sheath muscle tear. Omental infarction versus rectus sheath muscle tear. Patient's pain is controlled with oral Percocet. She is otherwise to avoid any heavy lifting. She is to be off work until Saturday. Activity is otherwise as tolerated. Her diet is as prior to admission. Patient did tell me that her brother was recently diagnosed with very serious blood clots and a lupus anticoagulant disorder. Father of a blood clot in the heart at age 40 of a sudden cardiac . Given her family history, a hypercoagulable workup has been sent, which she should follow up with her primary care provider. She is to follow up with her primary care provider (PCP) within the next seven days. She is to follow up with general surgery, Dr. Savage, as needed. MEDICATIONS AT THE TIME OF DISCHARGE: - [place] 5/325 mg two tablets every 4 hours as needed for pain, quantity 36 - Senna Plus 8.6/50 mg one tablet twice a day as needed for constipation - Ventolin HFA two puffs every 4 hours as needed for shortness of breath - Arnuity Ellipta 200 mcg inhaled daily - vitamin C 1 gram daily - aspirin - vitamin B complex one tablet daily - vitamin D3 5000 units one by mouth at bedtime - lisinopril 30 mg at bedtime - magnesium oxide 1 gram daily - metformin 2 grams daily - multivitamin one tablet daily - Crestor 20 mg at bedtime - Trulicity injection 1.5 mg once a week, either Saturday or Saturday - zinc 100 mg daily Greater than 30 minutes spent organizing disposition.
[2017-04-11 14:16] LABS: PROTEIN C ANTIGEN 65 % (60-150); PROTEIN S ANTIGEN FREE 109 % (57-157); PROTEIN S ANTIGEN TOTAL 90 % (60-150); SJOGREN'S ANTI SS-A <0.2 AI (0.0-0.9); SJOGREN'S ANTI SS-B <0.2 AI (0.0-0.9)
== END 2017-04-06 11:02 | disposition home or self-care (01) ==
LOC: M ED 19:36 → M ED INP 19:37 → M MSPAV 04-05 05:42
PROVIDERS: ATTEND Internal Medicine
DX: K55.069 Acute infarction of intestine, part and extent unspecified (principal); S39.011A Strain of muscle, fascia and tendon of abdomen, initial encounter; E11.9 Type 2 diabetes mellitus without complications; I10 Essential (primary) hypertension; R06.02 Shortness of breath; Z79.899 Other long term (current) drug therapy; Y92.9 Unspecified place or not applicable
CPT/HCPCS: 36415; 74177; 80048; 80076; 81001; 81025; 81240; 81241; 82150; 83090; 83605; 83690; 85025; 85027; 85300; 85301; 85302; 85305; 85306; 85610; 85652; 85730; 86038; 86140; 86147; 86235; 86256; 96374; 96375; 96376; 99284; J1170; J1885; Q9963; Q9967

== ENCOUNTER → 2017-07-26 | Outpatient (CLI) | payer OTHER | LOC: M WHC 14:24 | DX: Z12.31 Encounter for screening mammogram for malignant neoplasm of breast (principal) ==

== ENCOUNTER → 2017-10-30 | Outpatient (CLI) | payer OTHER ==
[2017-10-30 09:24] LABS: ANION GAP 7 MEQ/L (8-16); BLOOD UREA NITROGEN 8 MG/DL (7-18); CALCIUM LEVEL 8.3 MG/DL (8.5-10.1); CARBON DIOXIDE LEVEL 25 MEQ/L (21-32); CHLORIDE LEVEL 108 MEQ/L (98-107); CHOLESTEROL LEVEL 128 MG/DL (<200); CHOLESTEROL RISK RATIO 3.368 (<5); CREATININE FOR GFR 0.75 MG/DL (0.55-1.30); GLOMERULAR FILTRATION RATE > 60.0 (>58); GLUCOSE, FASTING 109 MG/DL (70-100); HDL CHOLESTEROL 38 MG/DL (>40); LDL CHOLESTEROL 71.6 MG/DL (<100); NON-HDL-C 90 MG/DL; POTASSIUM SERUM 4.5 MEQ/L (3.5-5.1); SODIUM LEVEL 140 MEQ/L (136-145); TRIGLYCERIDES LEVEL 92 MG/DL (<150)
[2017-11-01 09:02] LABS: TESTOSTERONE 24 NG/DL (14-76)
[2017-11-01 10:00] LABS: TOTAL 25(OH) VITAMIN D 49.5 NG/ML (30.0-100.0)
== END ==
LOC: M WUC 08:10
DX: E11.65 Type 2 diabetes mellitus with hyperglycemia (principal); E55.9 Vitamin D deficiency, unspecified

== ENCOUNTER → 2017-12-10 | Outpatient (REF) | payer OTHER | LOC: M LAB REF 16:54 | DX: R30.0 Dysuria (principal) | CPT/HCPCS: 87186 ==

== ENCOUNTER → 2018-04-04 | Outpatient (CLI) | payer OTHER ==
[2018-04-04 14:11] LABS: HIV 1&2 SCREEN CENTAUR NEGATIVE (NEGATIVE)
[2018-04-06 00:20] LABS: HERPES ZOSTER, VARICELLA IgG 3244 index (Immune >165); HERPES ZOSTER, VARICELLA IgM <0.91 index (0.00-0.90); HSV IgM TYPES 1&2 <0.91 Ratio (0.00-0.90); HSV TYPE I IgG SPECIFIC <0.91 index (0.00-0.90); HSV TYPE II IgG SPECIFIC 9.79 index (0.00-0.90)
== END ==
LOC: M SMT 10:18
DX: B02.9 Zoster without complications (principal)
CPT/HCPCS: 86694

== ENCOUNTER → 2018-06-30 | Outpatient (CLI) | payer OTHER ==
[~2018-06-30] MED LIST changes: +ALBU17IN INH; +ARNU1INH3 INH; +LISI-672 PO; +MAGN500T2 PO; +METF-699 PO; +MILK12002 PO; -MILKSUS PO; +NORCOTAB PO; +SENN1TAB2 PO; +TRUL0.5I SC; +VITA10006 PO; +ZINC100T2 PO
--- NOTE | 2018-06-30 17:46 | REP ---
Chest two views HISTORY: Acute bronchitis Comparison: 05/31/2016 The lungs are clear. The heart is normal in size. The pulmonary vasculature is normal in appearance. The bony structure is intact. IMPRESSION: No acute disease. Electronically Signed by Alistair Wolff MD 06/30/2018 05:38 P
== END ==
LOC: M WUC 17:25
PROVIDERS: ATTEND Physician Assistant
DX: J20.9 Acute bronchitis, unspecified (principal)

== ENCOUNTER → 2018-08-07 | Outpatient (REF) | payer OTHER ==
[~2018-08-07] MED LIST changes: +MILK120011 PO; -MILK12002 PO
== END ==
LOC: M LAB REF 17:15
PROVIDERS: ATTEND Physician Assistant
DX: J01.11 Acute recurrent frontal sinusitis (principal)

== ENCOUNTER → 2018-08-19 | Outpatient (CLI) | payer OTHER ==
--- NOTE | 2018-08-19 17:18 | REPMRS ---
Patient History The patient states she had a clinical breast exam in 06/01 Patient is nulliparous. Family history of breast cancer at age 50 or over in maternal grandmother. Taking hormonal contraceptives for 24 years. Digital Woman Screen Mammo: August 19, 2018 - Exam #: [id number] Bilateral CC and MLO view(s) were taken. Technologist: Shana Duron, Technologist Prior study comparison: July 26, 2017, digital woman screen mammo performed at [facility]. May 03, 2016, digital woman screen mammo performed at [facility]. April 29, 2015, digital woman screen mammo performed at [facility]. FINDINGS: There are scattered fibroglandular densities. There is a moderate amount of residual fibroglandular tissue which is fairly symmetric. There is no interval development of dominant mass, architectural distortion, or clustered microcalcification typical of malignancy. There has been no change in the appearance of the mammogram from the prior studies. 3-D tomosynthesis shows no additional findings. Assessment: BI-RADS/ACR category 1 mammogram. Negative Mammogram. Recommendation Routine screening mammogram of both breasts in 1 year (for women over age 40). This patient's Lifetime Breast Cancer RIsk is estimated at 18.1 %. This mammogram was interpreted with the aid of an FDA-approved computer-aided dectection system. Electronically Signed By: Judah Mackay MD 08/19/18 [id number]
== END ==
LOC: M WHC 14:18
PROVIDERS: ATTEND Nurse Practitioner Family
DX: Z12.31 Encounter for screening mammogram for malignant neoplasm of breast (principal); Z80.3 Family history of malignant neoplasm of breast

== ENCOUNTER → 2018-09-02 | Outpatient (CLI) | payer OTHER ==
--- NOTE | 2018-09-03 04:07 | REP ---
Clinical: Intermittent asthma . Comparison: 06/30/2018 . Technique: PA and lateral. Findings: The mediastinum and cardiac silhouette are normal. The lung greene are clear and without acute consolidation, effusion, or pneumothorax. The skeletal structures are intact and normal. Impression: 1. No acute cardiopulmonary process. Electronically Signed by Jarrod Taylor MD 09/03/2018 03:59 A
== END ==
LOC: M SMT 08:39
PROVIDERS: ATTEND Physician Assistant
DX: J45.20 Mild intermittent asthma, uncomplicated (principal)

== ENCOUNTER → 2018-09-02 | Outpatient (CLI) | payer OTHER ==
[2018-09-02 12:47] LABS: ALBUMIN 3.1 GM/DL (3.2-5.2); ALT/SGPT 23 U/L (12-78); BILIRUBIN,TOTAL 0.2 MG/DL (0.2-1.0); BLOOD UREA NITROGEN 11 MG/DL (7-18); CALCIUM LEVEL 8.1 MG/DL (8.5-10.1); CARBON DIOXIDE LEVEL 25 MEQ/L (21-32); CHLORIDE LEVEL 104 MEQ/L (98-107); CHOLESTEROL LEVEL 143 MG/DL (<200); CHOLESTEROL RISK RATIO 3.404 (<5); GLOMERULAR FILTRATION RATE > 60.0 (>58); GLUCOSE, FASTING 133 MG/DL (70-100); HDL CHOLESTEROL 42 MG/DL (>40); LDL CHOLESTEROL 83 MG/DL (<100); NON-HDL-C 101 MG/DL; SODIUM LEVEL 138 MEQ/L (136-145); TOTAL PROTEIN 6.8 GM/DL (6.4-8.2); TRIGLYCERIDES LEVEL 90 MG/DL (<150)
[2018-09-02 12:52] LABS: TOTAL 25(OH) VITAMIN D 48.9 NG/ML (30.0-100.0)
== END ==
LOC: M SMT 08:35
PROVIDERS: ATTEND Nurse Practitioner Family
DX: E78.00 Pure hypercholesterolemia, unspecified (principal); E55.9 Vitamin D deficiency, unspecified

== ENCOUNTER → 2018-11-14 | Outpatient (CLI) | payer OTHER ==
[~2018-11-14] MED LIST changes: -CRES20TA PO; +CRES20TA2 PO; +HYDR-3715 PO; -NORCOTAB PO; -SENN1TAB2 PO; +SENN1TAB40 PO
[2018-11-14 13:13] LABS: BASO # 0.1 10^3/uL (0.0-0.2); BASO % 0.6 % (0.0-1.0); EOS # 0.2 10^3/uL (0.0-0.50); EOS % 1.5 % (0.0-3.0); HEMATOCRIT 39.3 % (36.0-47.0); HEMOGLOBIN 12.6 g/dl (12.0-15.5); LYMPH # 1.4 10^3/uL (1.5-4.5); LYMPH % 12.4 % (24.0-44.0); MEAN CORPUSCULAR HEMOGLOBIN 28.4 pg (27.0-33.0); MEAN CORPUSCULAR HGB CONC 32.1 g/dl (32.0-36.5); MEAN CORPUSCULAR VOLUME 88.5 fl (80.0-96.0); MONO # 0.6 10^3/uL (0.0-0.8); MONO % 5.5 % (0.0-5.0); NEUTROPHILS # 9.1 10^3/uL (1.8-7.7); NEUTROPHILS % 79.6 % (36.0-66.0); PLATELET COUNT, AUTOMATED 432 10^3/uL (150-450); RED BLOOD COUNT 4.44 10^6/uL (4.00-5.40); WHITE BLOOD COUNT 11.4 10^3/uL (4.0-10.0)
[2018-11-14 13:19] LABS: ALBUMIN 3.4 GM/DL (3.2-5.2); ALT/SGPT 29 U/L (12-78); BILIRUBIN,TOTAL 0.4 MG/DL (0.2-1.0); BLOOD UREA NITROGEN 10 MG/DL (7-18); CALCIUM LEVEL 8.8 MG/DL (8.5-10.1); CARBON DIOXIDE LEVEL 26 MEQ/L (21-32); CHLORIDE LEVEL 103 MEQ/L (98-107); CREATININE FOR GFR 0.83 MG/DL (0.55-1.30); GLOMERULAR FILTRATION RATE > 60.0 (>58); GLUCOSE, FASTING 115 MG/DL (70-100); POTASSIUM SERUM 4.3 MEQ/L (3.5-5.1); SODIUM LEVEL 136 MEQ/L (136-145); TOTAL PROTEIN 7.2 GM/DL (6.4-8.2)
== END ==
LOC: M SMT 08:03
PROVIDERS: ATTEND Nurse Practitioner
DX: K92.1 Melena (principal)

== ENCOUNTER → 2019-04-28 | Outpatient (REF) | payer OTHER ==
[~2019-04-28] MED LIST changes: +SENN-53 PO; -SENN1TAB40 PO
== END ==
LOC: M LAB REF 17:10
PROVIDERS: ATTEND Physician Assistant
DX: R30.0 Dysuria (principal)

== ENCOUNTER → 2019-05-05 | Outpatient (CLI) | payer OTHER ==
--- NOTE | 2019-05-06 05:03 | REP ---
Clinical: Right knee pain. Technique: AP, lateral, bilateral oblique and sunrise views of the right and left knee. Findings: Right knee demonstrates mild increase sclerosis to the tibial surface as well as sclerosis along the posterior patellar margin and associated patellar spurring with mild patellofemoral joint space narrowing . Millard view also demonstrates fraying along the anterior patellar margin suggesting mild degenerative changes and patellar tendinopathy. No effusion. No acute fracture dislocation. Left knee demonstrates mild increased sclerosis to the tibial surface as well as sclerosis along the posterior patellar margin and associated patellar spurring with mild patellofemoral joint space narrowing . Millard view also demonstrates fraying along the anterior patellar margin suggesting mild degenerative changes and patellar tendinopathy. No effusion. No acute fracture or dislocation. Impression: Mild symmetric age-related arthritic changes primarily involving the patella and patellofemoral joint spaces. Electronically Signed by Jarrod Taylor MD 05/06/2019 04:55 A
== END ==
LOC: M SMT 12:57
PROVIDERS: ATTEND Physician Assistant
DX: M25.561 Pain in right knee (principal); M17.11 Unilateral primary osteoarthritis, right knee

== ENCOUNTER 2019-08-16 11:44 | Emergency (ER) | payer OTHER ==
[~2019-08-16] VITALS: Ht 172.7 cm; Wt 97.7 kg
[2019-08-16] MEDS ORDERED: BREO1INH3 (12:29)
--- NOTE | 2019-08-16 12:58 | REP ---
The left knee four views : Comparison is 02/04/2011. There is no fracture or dislocation. Mineralization and joint spaces are normal. There are no calcifications or foreign bodies. There is no effusion. Impression: Negative left knee . Electronically Signed by Zhang Peterson MD 08/16/2019 12:50 P
[2019-08-16] MEDS ORDERED: KETOROLAC 60 MG/2 ML VIAL (J1885) IM ONE (13:15)
[2019-08-16 13:25] LABS: BASO # 0.1 10^3/uL (0.0-0.2); BASO % 0.6 % (0.0-1.0); EOS # 0.3 10^3/uL (0.0-0.5); HEMATOCRIT 41.3 % (36.0-47.0); LYMPH # 3.2 10^3/uL (1.5-5.0); LYMPH % 22.3 % (24.0-44.0); MEAN CORPUSCULAR HEMOGLOBIN 28.1 pg (27.0-33.0); MEAN CORPUSCULAR HGB CONC 31.5 g/dl (32.0-36.5); MEAN CORPUSCULAR VOLUME 89.2 fl (80.0-96.0); MONO # 0.6 10^3/uL (0.0-0.8); MONO % 3.9 % (0.0-5.0); NEUTROPHILS # 10.2 10^3/uL (1.5-8.5); NEUTROPHILS % 70.6 % (36.0-66.0); PLATELET COUNT, AUTOMATED 385 10^3/uL (150-450); RED BLOOD COUNT 4.63 10^6/uL (4.00-5.40); WHITE BLOOD COUNT 14.4 10^3/uL (4.0-10.0)
--- NOTE | 2019-08-16 14:04 | REP ---
Left lower extremity deep vein duplex ultrasound: The deep veins demonstrate normal compression, normal Doppler color flow and normal Doppler waveforms with respiration and augmentation from the popliteal vein to the common femoral vein. There is a Davison's cyst in the popliteal fossa measuring 5.7 x 2.5 x 1.1 cm. Impression: There is no left lower extremity deep vein thrombus. There is a Davison's cyst in the popliteal fossa. Electronically Signed by Zhang Peterson MD 08/16/2019 01:55 P
[2019-08-16] MEDS ORDERED: KETO10TAB PO (15:05)
[2019-08-16 15:11] VITALS: BP 129/77
[2019-08-16 22:02] LABS: ERYTHROCYTE SEDIMENTATION RATE 37 mm/hr (0-20)
== END 2019-08-16 15:12 | disposition home or self-care (01) ==
LOC: M ED 11:44
DX: M71.22 Synovial cyst of popliteal space [Baker], left knee (principal); E11.9 Type 2 diabetes mellitus without complications; I10 Essential (primary) hypertension; E78.5 Hyperlipidemia, unspecified; J45.909 Unspecified asthma, uncomplicated; E28.2 Polycystic ovarian syndrome; K57.32 Diverticulitis of large intestine without perforation or abscess without bleeding; Z87.01 Personal history of pneumonia (recurrent); Z83.2 Family history of diseases of the blood and blood-forming organs and certain disorders involving the immune mechanism; Z79.82 Long term (current) use of aspirin; Z79.899 Other long term (current) drug therapy
CPT/HCPCS: 36415; 73564; 85025; 85652; 86140; 93971; 96372; 99284; J1885

== ENCOUNTER → 2019-12-09 | Outpatient (CLI) | payer OTHER ==
[~2019-12-09] MED LIST changes: +BREO1INH3; +CYCL-707 PO; -CYCL10TA PO; +KETO10TAB PO; -LISI-672 PO; +LISI30TA4 PO
[2019-12-09 10:42] LABS: ALBUMIN 2.9 GM/DL (3.2-5.2); ALT/SGPT 25 U/L (12-78); BILIRUBIN,DIRECT < 0.1 MG/DL (0.0-0.2); BILIRUBIN,TOTAL 0.2 MG/DL (0.2-1.0); CHOLESTEROL LEVEL 169 MG/DL (<200); CHOLESTEROL RISK RATIO 3.673 (<5); HDL CHOLESTEROL 46 MG/DL (>40); LDL CHOLESTEROL 91 MG/DL (<100); NON-HDL-C 123 MG/DL; TRIGLYCERIDES LEVEL 162 MG/DL (<150)
== END ==
LOC: M PLALAB 08:08
PROVIDERS: ATTEND Internal Medicine Endocrinology, Diabetes & Metabolism
DX: E11.65 Type 2 diabetes mellitus with hyperglycemia (principal)

== ENCOUNTER → 2019-12-11 | Outpatient (REF) | payer OTHER ==
[2019-12-14 16:06] LABS: MALB URINE SIEMENS 9.2 MG/L; MAU/CREAT RATIO 6.6 MCG/MG (0.0-30.0)
== END ==
LOC: M LAB REF 15:02
PROVIDERS: ATTEND Nurse Practitioner Family
DX: E11.65 Type 2 diabetes mellitus with hyperglycemia (principal)

== ENCOUNTER → 2019-12-16 | Outpatient (CLI) | payer OTHER ==
--- NOTE | 2019-12-16 10:10 | REPMRS ---
Patient History The patient states she had a clinical breast exam in July 2019.Patient is nulliparous. Family history of breast cancer at age 50 or over in maternal grandmother. Taking hormonal contraceptives for 24 years. 3D TOMOSYNTHESIS WAS PERFORMED. [facility] for [facility] cancer is 17.6%. VOLPARA DENSITY B. Digital Woman Screen Mammo: December 16, 2019 - Exam #: [id number] Bilateral CC and MLO view(s) were taken. Technologist: Vani Zuniga, Technologist Prior study comparison: August 19, 2018, bilateral digital woman screen mammo performed at [facility]. July 26, 2017, digital woman screen mammo performed at [facility]. FINDINGS: The breast tissue is heterogeneously dense. This may lower the sensitivity of mammography. There has been no change in the appearance of the mammogram from the prior studies. There is a moderate amount of residual fibroglandular tissue which is fairly symmetric. There is no interval development of dominant mass, areas of architectural distortion, or clustered microcalcification typical of malignancy. Assessment: BI-RADS/ACR category 1 mammogram. Negative Mammogram. Recommendation Routine screening mammogram in 1 year (for women over age 40). This mammogram was interpreted with the aid of an FDA-approved computer-aided dectection system. Electronically Signed By: Zhang Cuba MD 12/16/19 [id number]
== END ==
LOC: M WHC 07:42
PROVIDERS: ATTEND Obstetrics & Gynecology Gynecology
DX: Z12.31 Encounter for screening mammogram for malignant neoplasm of breast (principal); Z79.3 Long term (current) use of hormonal contraceptives; Z80.3 Family history of malignant neoplasm of breast

== ENCOUNTER → 2020-03-15 | Outpatient (CLI) | payer OTHER ==
[~2020-03-15] MED LIST changes: -METF-699 PO; +METF-817 PO
--- NOTE | 2020-04-12 09:19 | REPPI ---
CHEST X-RAY: CLINICAL: Dyspnea TECHNIQUE: PA and lateral COMPARISON: 09/02/18 FINDINGS: Mediastinum and cardiac silhouette are normal. Lung greene are clear. No consolidation, effusion or pneumothorax. Skeletal structures are intact. IMPRESSION: No acute cardiopulmonary process. MTDD
== END ==
LOC: M PLAIMG 15:34
PROVIDERS: ATTEND Internal Medicine Pulmonary Disease
DX: R06.00 Dyspnea, unspecified (principal); J45.20 Mild intermittent asthma, uncomplicated

== ENCOUNTER → 2020-03-16 | Outpatient (CLI) | payer OTHER ==
[~2020-03-16] MED LIST changes: +ISOVUE-370 76% 100ML VIAL As Ordered ONE
--- NOTE | 2020-03-16 15:44 | REPVR ---
PROCEDURE INFORMATION: Exam: CT Angiography Chest With Contrast Exam date and time: 03/16/2020 3:00 PM Age: 49 years old Clinical indication: Dyspnea TECHNIQUE: Imaging protocol: Computed tomographic angiography of the chest with intravenous contrast. 3D rendering (Not supervised by radiologist): MIP and/or 3D reconstructed images were created by the technologist. Radiation optimization: All CT scans at this facility use at least one of these dose optimization techniques: automated exposure control; mA and/or kV adjustment per patient size (includes targeted exams where dose is matched to clinical indication); or iterative reconstruction. Contrast material: ISOVUE 370; Contrast volume: 75 ml; Contrast route: INTRAVENOUS (IV); COMPARISON: CT ANGIO CHEST 05/31/2016. FINDINGS: Limitations: Breathing motion artifact obscures the lower lobe pulmonary arteries and decreases sensitivity for detection of pulmonary emboli (axial images 117-163). Large body habitus causes unavoidable image degradation. Pulmonary arteries: There are no filling defects in the pulmonary arterial tree to suggest a pulmonary embolus. Aorta: The thoracic aorta is intact without aneurysm or dissection. Lungs: The lungs are clear. Pleural space: Unremarkable. No pneumothorax. No pleural effusion. Heart: Unremarkable. No cardiomegaly. No pericardial effusion. Mediastinal space: The esophagus is normal. The trachea and bronchial tree are normal. Lymph nodes: There is no hilar, mediastinal or axillary lymphadenopathy. Gallbladder and bile ducts: Cholecystectomy. Bones/joints: Mild spinal degenerative changes. Soft tissues: Unremarkable. Other findings: Included upper abdominal structures appear normal. IMPRESSION: 1. No pulmonary embolus. 2. The lungs are clear. 3. Cholecystectomy. 4. No interval change when compared to the CTA in 2016. Electronically signed by: Jt Miles On 03/16/2020 15:44:30 PM
== END ==
LOC: M RAD 12:55
PROVIDERS: ATTEND Internal Medicine Pulmonary Disease
DX: R06.00 Dyspnea, unspecified (principal); Z90.49 Acquired absence of other specified parts of digestive tract
CPT/HCPCS: 71275; Q9967

== ENCOUNTER → 2020-03-16 | Outpatient (REF) | payer OTHER ==
[~2020-03-16] MED LIST changes: -ISOVUE-370 76% 100ML VIAL As Ordered ONE
[2020-03-16 14:47] LABS: BLOOD UREA NITROGEN 10 MG/DL (7-18); CREATININE FOR GFR 0.81 MG/DL (0.55-1.30); GLOMERULAR FILTRATION RATE > 60.0 (>58)
== END ==
LOC: M LAB REF 13:30
PROVIDERS: ATTEND Internal Medicine Pulmonary Disease
DX: R06.00 Dyspnea, unspecified (principal)

== ENCOUNTER → 2020-03-31 | Outpatient (CLI) | payer OTHER ==
[2020-03-31 14:21] LABS: BASO # 0.1 10^3/uL (0.0-0.2); BASO % 0.6 % (0.0-1.0); EOS # 0.3 10^3/uL (0.0-0.5); EOS % 2.2 % (0.0-3.0); HEMATOCRIT 37.2 % (36.0-47.0); HEMOGLOBIN 11.6 g/dl (12.0-15.5); LYMPH # 3.3 10^3/uL (1.5-5.0); LYMPH % 23.8 % (24.0-44.0); MEAN CORPUSCULAR HEMOGLOBIN 27.8 pg (27.0-33.0); MEAN CORPUSCULAR HGB CONC 31.2 g/dl (32.0-36.5); MONO # 0.6 10^3/uL (0.0-0.8); MONO % 4.5 % (0.0-5.0); NEUTROPHILS # 9.6 10^3/uL (1.5-8.5); NEUTROPHILS % 68.3 % (36.0-66.0); PLATELET COUNT, AUTOMATED 441 10^3/uL (150-450); RED BLOOD COUNT 4.18 10^6/uL (4.00-5.40)
[2020-03-31 14:53] LABS: ALBUMIN 3.1 GM/DL (3.2-5.2); ALT/SGPT 17 U/L (12-78); BILIRUBIN,TOTAL 0.3 MG/DL (0.2-1.0); BLOOD UREA NITROGEN 12 MG/DL (7-18); CALCIUM LEVEL 8.7 MG/DL (8.5-10.1); CARBON DIOXIDE LEVEL 25 MEQ/L (21-32); CHLORIDE LEVEL 105 MEQ/L (98-107); CREATININE FOR GFR 0.81 MG/DL (0.55-1.30); FERRITIN 36 NG/ML (8-252); GLOMERULAR FILTRATION RATE > 60.0 (>58); GLUCOSE, FASTING 97 MG/DL (70-100); IRON (FE) 45 UG/DL (50-170); PERCENT SATURATION 10.3 % (13.2-45.0); SODIUM LEVEL 139 MEQ/L (136-145); TOTAL IRON BINDING CAPACITY 435 UG/DL (250-450); TOTAL PROTEIN 7.3 GM/DL (6.4-8.2)
[2020-03-31 16:11] LABS: TOTAL 25(OH) VITAMIN D 44.7 NG/ML (30.0-100.0)
[2020-03-31 16:12] LABS: FOLATE 16.7 NG/ML
[2020-03-31 17:14] LABS: VITAMIN B12 LEVEL 314 PG/ML
== END ==
LOC: M PLALAB 10:11
PROVIDERS: ATTEND Physician Assistant
DX: D64.9 Anemia, unspecified (principal)

== ENCOUNTER → 2020-04-06 | Outpatient (CLI) | payer OTHER | LOC: M RAD 15:21 | PROVIDERS: ATTEND Physician Assistant | DX: E28.2 Polycystic ovarian syndrome (principal) ==

== ENCOUNTER → 2020-04-21 | Outpatient (REF) | payer OTHER | LOC: M LAB REF 16:46 | PROVIDERS: ATTEND Physician Assistant | DX: N39.0 Urinary tract infection, site not specified (principal) ==

== ENCOUNTER → 2020-06-30 | Outpatient (REF) | payer OTHER | LOC: M SFHCWAGY 10:04 | PROVIDERS: ATTEND Nurse Practitioner Women's Health | DX: Z11.3 Encounter for screening for infections with a predominantly sexual mode of transmission (principal) ==

== ENCOUNTER 2020-08-12 13:52 | Outpatient (CLI) | payer OTHER ==
[~2020-08-12] VITALS: Ht 172.7 cm; Wt 97.7 kg
[2020-08-12] MEDS ORDERED: FERRIC CARBOXYMALTOSE INJ 750 MG in NS 250 ML IV ONE (14:00)
[2020-08-12 14:51] VITALS: BP 134/87
[2020-08-12 15:40] VITALS: BP 131/66
[2020-08-12 16:02] VITALS: BP 128/62
== END 2020-08-12 16:00 | disposition home or self-care (01) ==
LOC: M INFU 13:52
PROVIDERS: ATTEND Physician Assistant
DX: D50.9 Iron deficiency anemia, unspecified (principal)
CPT/HCPCS: 96365; J1439

== ENCOUNTER 2020-08-23 13:13 | Outpatient (CLI) | payer OTHER ==
[~2020-08-23] VITALS: Ht 172.7 cm; Wt 97.7 kg
[~2020-08-23 13:13] MED LIST changes: -LISI-538 PO; +LISI20TA33 PO
[2020-08-23 13:15] VITALS: BP 136/80
[2020-08-23] MEDS ORDERED: FERRIC CARBOXYMALTOSE INJ 750 MG, VIAL MATE ADAPTER 1 EACH in NS 250 ML IV ONE (13:30)
[2020-08-23] MEDS ORDERED: INCR1INH INH (14:07)
[2020-08-23 15:35] VITALS: BP 123/75
== END 2020-08-23 15:35 | disposition home or self-care (01) ==
LOC: M INFU 13:13
PROVIDERS: ATTEND Physician Assistant
DX: D50.9 Iron deficiency anemia, unspecified (principal)
CPT/HCPCS: 96365; 96366; J1439

== ENCOUNTER → 2020-09-14 | Outpatient (CLI) | payer OTHER ==
[~2020-09-14] MED LIST changes: +INCR1INH INH
[2020-09-14 10:24] LABS: BASO # 0.1 10^3/uL (0.0-0.2); BASO % 0.4 % (0.0-1.0); EOS # 0.2 10^3/uL (0.0-0.5); EOS % 1.5 % (0.0-3.0); HEMATOCRIT 40.9 % (36.0-47.0); HEMOGLOBIN 13.1 g/dl (12.0-15.5); LYMPH % 20.5 % (24.0-44.0); MEAN CORPUSCULAR HEMOGLOBIN 28.6 pg (27.0-33.0); MEAN CORPUSCULAR VOLUME 89.3 fl (80.0-96.0); MONO # 0.7 10^3/uL (0.0-0.8); MONO % 4.4 % (2.0-8.0); NEUTROPHILS # 10.8 10^3/uL (1.5-8.5); NEUTROPHILS % 72.6 % (36.0-66.0); PLATELET COUNT, AUTOMATED 356 10^3/uL (150-450); RED BLOOD COUNT 4.58 10^6/uL (4.00-5.40); WHITE BLOOD COUNT 14.8 10^3/uL (4.0-10.0)
[2020-09-14 11:10] LABS: ALBUMIN 3.2 GM/DL (3.2-5.2); ALT/SGPT 19 U/L (12-78); BILIRUBIN,TOTAL 0.2 MG/DL (0.2-1.0); BLOOD UREA NITROGEN 13 MG/DL (7-18); CALCIUM LEVEL 8.4 MG/DL (8.5-10.1); CARBON DIOXIDE LEVEL 29 MEQ/L (21-32); CHLORIDE LEVEL 105 MEQ/L (98-107); CHOLESTEROL LEVEL 166 MG/DL (<200); CHOLESTEROL RISK RATIO 3.074 (<5); CREATININE FOR GFR 0.81 MG/DL (0.55-1.30); FERRITIN 666 NG/ML (8-252); GLOMERULAR FILTRATION RATE > 60.0 (>58); GLUCOSE, FASTING 105 MG/DL (70-100); HDL CHOLESTEROL 54 MG/DL (>40); IRON (FE) 65 UG/DL (50-170); LDL CHOLESTEROL 91 MG/DL (<100); NON-HDL-C 112 MG/DL; PERCENT SATURATION 19.4 % (13.2-45.0); POTASSIUM SERUM 3.9 MEQ/L (3.5-5.1); SODIUM LEVEL 138 MEQ/L (136-145); TOTAL IRON BINDING CAPACITY 335 UG/DL (250-450); TOTAL PROTEIN 7.1 GM/DL (6.4-8.2); TRIGLYCERIDES LEVEL 103 MG/DL (<150)
== END ==
LOC: M PLALAB 08:02
PROVIDERS: ATTEND Physician Assistant
DX: D50.9 Iron deficiency anemia, unspecified (principal); E78.5 Hyperlipidemia, unspecified; E11.9 Type 2 diabetes mellitus without complications

== ENCOUNTER → 2020-10-04 | Outpatient (CLI) | payer OTHER ==
[2020-10-04 10:47] LABS: BASO # 0.1 10^3/uL (0.0-0.2); BASO % 0.7 % (0.0-1.0); EOS # 0.4 10^3/uL (0.0-0.5); EOS % 2.9 % (0.0-3.0); HEMATOCRIT 40.6 % (36.0-47.0); HEMOGLOBIN 13.3 g/dl (12.0-15.5); LYMPH # 2.8 10^3/uL (1.5-5.0); LYMPH % 21.5 % (24.0-44.0); MEAN CORPUSCULAR HEMOGLOBIN 29.8 pg (27.0-33.0); MEAN CORPUSCULAR HGB CONC 32.8 g/dl (32.0-36.5); MONO # 0.7 10^3/uL (0.0-0.8); MONO % 5.4 % (2.0-8.0); NEUTROPHILS # 8.8 10^3/uL (1.5-8.5); PLATELET COUNT, AUTOMATED 425 10^3/uL (150-450); RED BLOOD COUNT 4.46 10^6/uL (4.00-5.40); WHITE BLOOD COUNT 12.8 10^3/uL (4.0-10.0)
== END ==
LOC: M PLALAB 08:09
PROVIDERS: ATTEND Physician Assistant
DX: D72.829 Elevated white blood cell count, unspecified (principal)

== ENCOUNTER → 2020-10-07 | Outpatient (CLI) | payer OTHER | LOC: M LABSMTC 09:41 | PROVIDERS: ATTEND Orthopaedic Surgery | DX: Z20.822 Contact with and (suspected) exposure to COVID-19 (principal) ==

== ENCOUNTER → 2021-07-05 | Outpatient (REF) | payer OTHER | LOC: M LAB REF 18:35 | PROVIDERS: ATTEND Physician Assistant | DX: J02.9 Acute pharyngitis, unspecified (principal) ==

== ENCOUNTER → 2021-08-04 | Outpatient (CLI) | payer OTHER | LOC: M WHC 12:55 | PROVIDERS: ATTEND Nurse Practitioner Women's Health | DX: Z12.31 Encounter for screening mammogram for malignant neoplasm of breast (principal); Z80.3 Family history of malignant neoplasm of breast; Z79.3 Long term (current) use of hormonal contraceptives ==

== ENCOUNTER → 2021-08-08 | Outpatient (CLI) | payer OTHER ==
[2021-08-08 10:36] LABS: BASO # 0.1 10^3/uL (0.0-0.2); BASO % 0.7 % (0.0-1.0); EOS # 0.4 10^3/uL (0.0-0.5); EOS % 2.9 % (0.0-3.0); HEMATOCRIT 40.1 % (36.0-47.0); HEMOGLOBIN 12.8 g/dl (12.0-15.5); LYMPH # 3.3 10^3/uL (1.5-5.0); MEAN CORPUSCULAR HEMOGLOBIN 29.1 pg (27.0-33.0); MEAN CORPUSCULAR HGB CONC 31.9 g/dl (32.0-36.5); MEAN CORPUSCULAR VOLUME 91.1 fl (80.0-96.0); MONO # 0.7 10^3/uL (0.0-0.8); MONO % 4.9 % (2.0-8.0); NEUTROPHILS # 9.1 10^3/uL (1.5-8.5); NEUTROPHILS % 67.1 % (36.0-66.0); PLATELET COUNT, AUTOMATED 399 10^3/uL (150-450); WHITE BLOOD COUNT 13.6 10^3/uL (4.0-10.0)
[2021-08-08 11:04] LABS: ALBUMIN 2.9 GM/DL (3.2-5.2); ALT/SGPT 27 U/L (12-78); BILIRUBIN,TOTAL 0.2 MG/DL (0.2-1.0); BLOOD UREA NITROGEN 9 MG/DL (7-18); CALCIUM LEVEL 8.5 MG/DL (8.5-10.1); CARBON DIOXIDE LEVEL 26 MEQ/L (21-32); CHLORIDE LEVEL 105 MEQ/L (98-107); CHOLESTEROL LEVEL 154 MG/DL (<200); CHOLESTEROL RISK RATIO 3.756 (<5); CREATININE FOR GFR 0.63 MG/DL (0.55-1.30); FERRITIN 433 NG/ML (8-252); GLOMERULAR FILTRATION RATE > 60.0 (>51); GLUCOSE, FASTING 124 MG/DL (70-100); HDL CHOLESTEROL 41 MG/DL (>40); IRON (FE) 46 UG/DL (50-170); LDL CHOLESTEROL 89 MG/DL (<100); NON-HDL-C 113 MG/DL; PERCENT SATURATION 15.4 % (13.2-45.0); POTASSIUM SERUM 3.9 MEQ/L (3.5-5.1); SODIUM LEVEL 138 MEQ/L (136-145); TOTAL IRON BINDING CAPACITY 299 UG/DL (250-450); TOTAL PROTEIN 6.7 GM/DL (6.4-8.2); TRIGLYCERIDES LEVEL 120 MG/DL (<150)
[2021-08-08 11:12] LABS: HEMOGLOBIN A1c 7.1 %
[2021-08-08 11:13] LABS: FOLATE 19.9 NG/ML; VITAMIN B12 LEVEL 561 PG/ML
[2021-08-09 12:44] LABS: MALB URINE SIEMENS 22.8 MG/L; MAU/CREAT RATIO 10.7 MCG/MG (0.0-30.0)
== END ==
LOC: M PLALAB 07:55
PROVIDERS: ATTEND Physician Assistant
DX: E11.9 Type 2 diabetes mellitus without complications (principal); D64.9 Anemia, unspecified; E78.5 Hyperlipidemia, unspecified

== ENCOUNTER → 2021-09-01 | Outpatient (CLI) | payer OTHER | LOC: M LABSMTC 10:18 | PROVIDERS: ATTEND Physician Assistant Surgical | DX: Z01.812 Encounter for preprocedural laboratory examination (principal); Z20.822 Contact with and (suspected) exposure to COVID-19 ==

== ENCOUNTER → 2021-11-13 | Outpatient (CLI) | payer OTHER ==
[2021-11-13 11:39] LABS: ALBUMIN 3.1 GM/DL (3.2-5.2); ALT/SGPT 21 U/L (12-78); BILIRUBIN,TOTAL 0.2 MG/DL (0.2-1.0); BLOOD UREA NITROGEN 13 MG/DL (7-18); CALCIUM LEVEL 9.4 MG/DL (8.5-10.1); CARBON DIOXIDE LEVEL 26 MEQ/L (21-32); CHLORIDE LEVEL 106 MEQ/L (98-107); CHOLESTEROL LEVEL 148 MG/DL (<200); CREATININE FOR GFR 0.68 MG/DL (0.55-1.30); GLOMERULAR FILTRATION RATE > 60.0 (>51); GLUCOSE, FASTING 105 MG/DL (70-100); HDL CHOLESTEROL 49 MG/DL (>40); LDL CHOLESTEROL 74 MG/DL (<100); NON-HDL-C 99 MG/DL; POTASSIUM SERUM 3.9 MEQ/L (3.5-5.1); SODIUM LEVEL 140 MEQ/L (136-145); TOTAL PROTEIN 6.7 GM/DL (6.4-8.2); TRIGLYCERIDES LEVEL 125 MG/DL (<150)
[2021-11-13 11:44] LABS: TOTAL 25(OH) VITAMIN D 64.4 NG/ML (30.0-100.0)
[2021-11-13 11:50] LABS: MALB URINE SIEMENS 15.1 MG/L; MAU/CREAT RATIO 7.7 MCG/MG (0.0-30.0)
== END ==
LOC: M PLALAB 08:02
PROVIDERS: ATTEND Nurse Practitioner Family
DX: E78.00 Pure hypercholesterolemia, unspecified (principal); E11.65 Type 2 diabetes mellitus with hyperglycemia; E55.9 Vitamin D deficiency, unspecified

== ENCOUNTER → 2021-12-21 | Outpatient (CLI) | payer OTHER | LOC: M WHC 06:44 | PROVIDERS: ATTEND Physician Assistant | DX: M79.651 Pain in right thigh (principal); M79.652 Pain in left thigh ==

== ENCOUNTER → 2022-09-21 | Outpatient (CLI) | payer OTHER ==
[2022-09-21 11:46] LABS: BLOOD UREA NITROGEN 13 MG/DL (9-23); CALCIUM LEVEL 8.6 MG/DL (8.5-10.1); CARBON DIOXIDE LEVEL 27 MMOL/L (20-31); CHLORIDE LEVEL 105 MMOL/L (98-107); CREATININE FOR GFR 0.86 MG/DL (0.55-1.30); GLOMERULAR FILTRATION RATE > 60.0 (>51); GLUCOSE, FASTING 115 MG/DL (60-100); POTASSIUM SERUM 4.4 MMOL/L (3.5-5.1); SODIUM LEVEL 139 MMOL/L (136-145)
== END ==
LOC: M PLALAB 08:07
PROVIDERS: ATTEND Physician Assistant
DX: I11.9 Hypertensive heart disease without heart failure (principal)

== ENCOUNTER → 2022-09-21 | Outpatient (CLI) | payer OTHER ==
[2022-09-21 11:48] LABS: ALKALINE PHOSPHATASE 93 U/L (46-116); ALT/SGPT 17 U/L (7.0-40); AST/SGOT 17 U/L (<34); BILIRUBIN,TOTAL 0.4 MG/DL (0.3-1.2); BLOOD UREA NITROGEN 14 MG/DL (9-23); CALCIUM LEVEL 8.7 MG/DL (8.5-10.1); CARBON DIOXIDE LEVEL 28 MMOL/L (20-31); CHLORIDE LEVEL 106 MMOL/L (98-107); CHOLESTEROL LEVEL 157 MG/DL (<200); CREATININE FOR GFR 0.85 MG/DL (0.55-1.30); CREATININE, URINE 159.6 MG/DL; GLOMERULAR FILTRATION RATE > 60.0 (>51); GLUCOSE, FASTING 114 MG/DL (60-100); HDL CHOLESTEROL 42.4 MG/DL (>40); LDL CHOLESTEROL 93.4 MG/DL (<100); MAU/CREAT RATIO 4.3 MCG/MG (0.0-30.0); NON-HDL-C 114.6 MG/DL; POTASSIUM SERUM 4.5 MMOL/L (3.5-5.1); SODIUM LEVEL 139 MMOL/L (136-145); TOTAL PROTEIN 6.6 G/DL (5.7-8.2); TRIGLYCERIDES LEVEL 106 MG/DL (<150)
[2022-09-21 11:49] LABS: TOTAL 25(OH) VITAMIN D 54.8 NG/ML (20.0-100.0)
== END ==
LOC: M PLALAB 08:09
PROVIDERS: ATTEND Nurse Practitioner Family
DX: E78.00 Pure hypercholesterolemia, unspecified (principal); E11.65 Type 2 diabetes mellitus with hyperglycemia; E55.9 Vitamin D deficiency, unspecified

== ENCOUNTER → 2022-11-29 | Outpatient (CLI) | payer OTHER ==
[2022-11-29 14:53] LABS: ALBUMIN 3.3 G/DL (3.2-5.2); ALKALINE PHOSPHATASE 104 U/L (46-116); ALT/SGPT 23 U/L (7.0-40); AST/SGOT 19 U/L (<34); BILIRUBIN,TOTAL 0.3 MG/DL (0.3-1.2); BLOOD UREA NITROGEN 17 MG/DL (9-23); CALCIUM LEVEL 9.2 MG/DL (8.5-10.1); CARBON DIOXIDE LEVEL 28 MMOL/L (20-31); CHLORIDE LEVEL 105 MMOL/L (98-107); CREATININE FOR GFR 0.83 MG/DL (0.55-1.30); GLOMERULAR FILTRATION RATE > 60.0 (>51); GLUCOSE, FASTING 100 MG/DL (60-100); MAGNESIUM LEVEL 1.7 MG/DL (1.8-2.4); POTASSIUM SERUM 4.8 MMOL/L (3.5-5.1); SODIUM LEVEL 140 MMOL/L (136-145); TOTAL PROTEIN 7.1 G/DL (5.7-8.2)
[2022-11-29 14:55] LABS: BASO # 0.1 10^3/uL (0.0-0.2); BASO % 0.7 % (0.0-1.0); EOS # 0.3 10^3/uL (0.0-0.5); EOS % 2.1 % (0.0-3.0); HEMATOCRIT 41.9 % (36.0-47.0); HEMOGLOBIN 13.5 g/dl (12.0-15.5); LYMPH # 3.1 10^3/uL (1.5-5.0); LYMPH % 25.9 % (24.0-44.0); MEAN CORPUSCULAR HEMOGLOBIN 29.5 pg (27.0-33.0); MEAN CORPUSCULAR HGB CONC 32.2 g/dl (32.0-36.5); MEAN CORPUSCULAR VOLUME 91.7 fl (80.0-96.0); MONO # 0.7 10^3/uL (0.0-0.8); MONO % 5.6 % (2.0-8.0); NEUTROPHILS # 7.9 10^3/uL (1.5-8.5); NEUTROPHILS % 65.5 % (36.0-66.0); PLATELET COUNT, AUTOMATED 421 10^3/uL (150-450); RED BLOOD COUNT 4.57 10^6/uL (4.00-5.40)
[2022-11-29 14:58] LABS: VITAMIN B12 LEVEL 445 PG/ML (211-911)
[2022-11-29 15:00] LABS: CPK CREATINE PHOSPHOKINASE 73 U/L (34-145); FOLATE 18.52 NG/ML (>5.4)
[2022-11-29 15:21] LABS: ERYTHROCYTE SEDIMENTATION RATE 56 mm/hr (0-30)
== END ==
LOC: M PLALAB 10:44
PROVIDERS: ATTEND Physician Assistant
DX: R20.2 Paresthesia of skin (principal)

== ENCOUNTER → 2022-11-30 | Outpatient (REF) | payer OTHER ==
[2022-11-30 20:12] LABS: GC DNA AMPLIFICATION NEGATIVE (NEGATIVE)
== END ==
LOC: M SFHCWAGY 17:30
PROVIDERS: ATTEND Nurse Practitioner Family
DX: Z12.4 Encounter for screening for malignant neoplasm of cervix (principal); Z11.3 Encounter for screening for infections with a predominantly sexual mode of transmission; R39.15 Urgency of urination
CPT/HCPCS: 87070; 87086; 87624; 87661; 87810; 87850; G0123

== ENCOUNTER → 2022-12-04 | Outpatient (REF) | payer OTHER ==
[2022-12-04 18:31] LABS: APPEARANCE, URINE CLOUDY (CLEAR); BACTERIA, URINE AUTO 3+ (NEGATIVE); BILIRUBIN, URINE AUTO NEGATIVE (NEGATIVE); BLOOD, URINE BLOOD 1+ (NEGATIVE); COLOR, URINE YELLOW (YELLOW); GLUCOSE, URINE (UA) AUTO NEGATIVE (NEGATIVE); KETONE, URINE AUTO NEGATIVE (NEGATIVE); LEUKOCYTE ESTERASE, URINE AUTO 3+ (NEGATIVE); MUCUS, URINE SMALL (NEGATIVE); NITRITE, URINE AUTO POSITIVE (NEGATIVE); PROTEIN, URINE AUTO NEGATIVE (NEGATIVE); RBC, URINE AUTO 8 /HPF (0-3); SPECIFIC GRAVITY URINE AUTO 1.016 (1.002-1.035); SQUAMOUS EPITHELIAL CELL UR AU 2 /HPF (0-6); UROBILINOGEN, URINE AUTO 0.2 mg/dL (0.0-2.0); WBC, URINE AUTO TNTC /HPF (0-3)
== END ==
LOC: M SFHCWAGY 18:07
PROVIDERS: ATTEND Nurse Practitioner Family
DX: R39.15 Urgency of urination (principal)

== ENCOUNTER → 2022-12-07 | Outpatient (CLI) | payer OTHER ==
[2022-12-07 15:44] LABS: BASO # 0.1 10^3/uL (0.0-0.2); BASO % 0.6 % (0.0-1.0); EOS # 0.3 10^3/uL (0.0-0.5); EOS % 2.7 % (0.0-3.0); HEMOGLOBIN 12.8 g/dl (12.0-15.5); LYMPH # 3.9 10^3/uL (1.5-5.0); MEAN CORPUSCULAR HEMOGLOBIN 28.8 pg (27.0-33.0); MEAN CORPUSCULAR VOLUME 90.1 fl (80.0-96.0); MONO # 0.7 10^3/uL (0.0-0.8); MONO % 5.6 % (2.0-8.0); NEUTROPHILS # 7.5 10^3/uL (1.5-8.5); NEUTROPHILS % 59.8 % (36.0-66.0); PLATELET COUNT, AUTOMATED 429 10^3/uL (150-450); RED BLOOD COUNT 4.44 10^6/uL (4.00-5.40); WHITE BLOOD COUNT 12.5 10^3/uL (4.0-10.0)
[2022-12-07 16:10] LABS: ERYTHROCYTE SEDIMENTATION RATE 76 mm/hr (0-30)
[2022-12-07 16:12] LABS: C REACTIVE PROTEIN QUANTITATIV 2.4 MG/DL (<1.0)
[2022-12-07 16:14] LABS: RHEUMATOID FACTOR QUANT 4.2 IU/ML (<14)
[2022-12-11 20:07] LABS: ANA (HEP2) Negative (.); CYCLIC CITRULLINATED PEPTIDE 3 units (0-19); IgG P18 AB Absent (.); IgG P23 AB Absent (.); IgG P28 AB Absent (.); IgG P30 AB Absent (.); IgG P39 AB Present (.); IgG P41 AB Present (.); IgG P45 AB Absent (.); IgG P66 AB Absent (.); IgG P93 AB Absent (.); IgM P23 AB Absent (.); IgM P39 AB Absent (.); IgM P41 AB Absent (.); LYME IgG WB INTERPRETATION Negative (.); LYME IgM WB INTERPRETATION Negative (.)
== END ==
LOC: M PLALAB 14:13
PROVIDERS: ATTEND Family Medicine
DX: R70.0 Elevated erythrocyte sedimentation rate (principal); R20.2 Paresthesia of skin

== ENCOUNTER → 2022-12-14 | Outpatient (CLI) | payer OTHER ==
[2022-12-14 10:48] LABS: BASO # 0.1 10^3/uL (0.0-0.2); BASO % 0.6 % (0.0-1.0); EOS # 0.4 10^3/uL (0.0-0.5); EOS % 3.8 % (0.0-3.0); HEMATOCRIT 38.9 % (36.0-47.0); HEMOGLOBIN 12.6 g/dl (12.0-15.5); LYMPH # 3.2 10^3/uL (1.5-5.0); LYMPH % 28.9 % (24.0-44.0); MEAN CORPUSCULAR HEMOGLOBIN 29.4 pg (27.0-33.0); MEAN CORPUSCULAR HGB CONC 32.4 g/dl (32.0-36.5); MEAN CORPUSCULAR VOLUME 90.7 fl (80.0-96.0); MONO # 0.8 10^3/uL (0.0-0.8); MONO % 6.7 % (2.0-8.0); NEUTROPHILS # 6.5 10^3/uL (1.5-8.5); NEUTROPHILS % 58.4 % (36.0-66.0); PLATELET COUNT, AUTOMATED 380 10^3/uL (150-450); RED BLOOD COUNT 4.29 10^6/uL (4.00-5.40); WHITE BLOOD COUNT 11.2 10^3/uL (4.0-10.0)
[2022-12-14 11:01] LABS: ERYTHROCYTE SEDIMENTATION RATE 54 mm/hr (0-30)
[2022-12-14 11:26] LABS: C REACTIVE PROTEIN QUANTITATIV 1.3 MG/DL (<1.0)
== END ==
LOC: M PLALAB 08:05
PROVIDERS: ATTEND Family Medicine
DX: R70.0 Elevated erythrocyte sedimentation rate (principal); M79.10 Myalgia, unspecified site

== ENCOUNTER → 2023-02-12 | Outpatient (CLI) | payer OTHER ==
[2023-02-12 15:59] LABS: APPEARANCE, URINE HAZY (CLEAR); BACTERIA, URINE AUTO NEGATIVE (NEGATIVE); BILIRUBIN, URINE AUTO NEGATIVE (NEGATIVE); BLOOD, URINE BLOOD 1+ (NEGATIVE); COLOR, URINE YELLOW (YELLOW); GLUCOSE, URINE (UA) AUTO NEGATIVE (NEGATIVE); KETONE, URINE AUTO NEGATIVE (NEGATIVE); LEUKOCYTE ESTERASE, URINE AUTO 2+ (NEGATIVE); MUCUS, URINE SMALL (NEGATIVE); NITRITE, URINE AUTO NEGATIVE (NEGATIVE); PROTEIN, URINE AUTO NEGATIVE (NEGATIVE); RBC, URINE AUTO 2 /HPF (0-3); SQUAMOUS EPITHELIAL CELL UR AU 3 /HPF (0-6); UROBILINOGEN, URINE AUTO 0.2 mg/dL (0.0-2.0); WBC, URINE AUTO 9 /HPF (0-3)
[2023-02-12 16:22] LABS: BASO # 0.1 10^3/uL (0.0-0.2); BASO % 0.8 % (0.0-1.0); EOS # 0.4 10^3/uL (0.0-0.5); EOS % 3.6 % (0.0-3.0); HEMATOCRIT 38.4 % (36.0-47.0); HEMOGLOBIN 12.3 g/dl (12.0-15.5); LYMPH # 3.3 10^3/uL (1.5-5.0); LYMPH % 27.9 % (24.0-44.0); MEAN CORPUSCULAR HEMOGLOBIN 28.9 pg (27.0-33.0); MEAN CORPUSCULAR VOLUME 90.4 fl (80.0-96.0); MONO # 0.6 10^3/uL (0.0-0.8); MONO % 4.9 % (2.0-8.0); NEUTROPHILS # 7.4 10^3/uL (1.5-8.5); NEUTROPHILS % 62.4 % (36.0-66.0); PLATELET COUNT, AUTOMATED 369 10^3/uL (150-450); RED BLOOD COUNT 4.25 10^6/uL (4.00-5.40); WHITE BLOOD COUNT 11.9 10^3/uL (4.0-10.0)
[2023-02-12 16:27] LABS: ALBUMIN 3.3 G/DL (3.2-5.2); ALKALINE PHOSPHATASE 100 U/L (46-116); ALT/SGPT 23 U/L (7.0-40); AST/SGOT 17 U/L (<34); BILIRUBIN,TOTAL 0.3 MG/DL (0.3-1.2); BLOOD UREA NITROGEN 22 MG/DL (9-23); CALCIUM LEVEL 9.5 MG/DL (8.5-10.1); CARBON DIOXIDE LEVEL 26 MMOL/L (20-31); CHLORIDE LEVEL 104 MMOL/L (98-107); CREATININE FOR GFR 0.91 MG/DL (0.55-1.30); GLOMERULAR FILTRATION RATE > 60.0 (>51); GLUCOSE, FASTING 122 MG/DL (60-100); POTASSIUM SERUM 3.9 MMOL/L (3.5-5.1); SODIUM LEVEL 141 MMOL/L (136-145); TOTAL PROTEIN 7.1 G/DL (5.7-8.2)
== END ==
LOC: M PLALAB 14:15
PROVIDERS: ATTEND Physician Assistant
DX: I10 Essential (primary) hypertension (principal); N17.9 Acute kidney failure, unspecified

== ENCOUNTER → 2023-04-02 | Outpatient (CLI) | payer OTHER ==
[2023-04-02 16:25] LABS: BASO # 0.1 10^3/uL (0.0-0.2); BASO % 0.5 % (0.0-1.0); EOS # 0.7 10^3/uL (0.0-0.5); EOS % 5.3 % (0.0-3.0); HEMATOCRIT 37.3 % (36.0-47.0); HEMOGLOBIN 12.1 g/dl (12.0-15.5); LYMPH # 3.2 10^3/uL (1.5-5.0); LYMPH % 25.9 % (24.0-44.0); MEAN CORPUSCULAR HEMOGLOBIN 28.5 pg (27.0-33.0); MEAN CORPUSCULAR HGB CONC 32.4 g/dl (32.0-36.5); MONO # 0.8 10^3/uL (0.0-0.8); MONO % 6.2 % (2.0-8.0); NEUTROPHILS # 7.6 10^3/uL (1.5-8.5); NEUTROPHILS % 61.8 % (36.0-66.0); PLATELET COUNT, AUTOMATED 383 10^3/uL (150-450); RED BLOOD COUNT 4.24 10^6/uL (4.00-5.40); WHITE BLOOD COUNT 12.3 10^3/uL (4.0-10.0)
[2023-04-02 16:43] LABS: ALBUMIN 3.2 G/DL (3.2-5.2); ALKALINE PHOSPHATASE 107 U/L (46-116); ALT/SGPT 18 U/L (7.0-40); AST/SGOT 15 U/L (<34); BILIRUBIN,TOTAL 0.4 MG/DL (0.3-1.2); BLOOD UREA NITROGEN 12 MG/DL (9-23); CALCIUM LEVEL 8.4 MG/DL (8.5-10.1); CARBON DIOXIDE LEVEL 26 MMOL/L (20-31); CHLORIDE LEVEL 102 MMOL/L (98-107); CREATININE FOR GFR 0.65 MG/DL (0.55-1.30); GLOMERULAR FILTRATION RATE > 60.0 (>51); GLUCOSE, FASTING 87 MG/DL (60-100); POTASSIUM SERUM 3.7 MMOL/L (3.5-5.1); SODIUM LEVEL 137 MMOL/L (136-145); TOTAL PROTEIN 6.7 G/DL (5.7-8.2)
[2023-04-02 17:42] LABS: HEMOGLOBIN A1c 5.9 % (4.0-6.0)
== END ==
LOC: M PLALAB 14:38
PROVIDERS: ATTEND Nurse Practitioner Adult Health
DX: R35.89 Other polyuria (principal); R30.0 Dysuria

== ENCOUNTER → 2023-05-22 | Outpatient (CLI) | payer OTHER ==
[~2023-05-22] MED LIST changes: +SEMA0.257
== END ==
LOC: M RAD 09:06
PROVIDERS: ATTEND Internal Medicine Hematology & Oncology
DX: D72.829 Elevated white blood cell count, unspecified (principal); K76.0 Fatty (change of) liver, not elsewhere classified

== ENCOUNTER → 2023-06-26 | Outpatient (REF) | payer OTHER ==
[~2023-06-26] MED LIST changes: +B-10TAB2 PO; +CHLO125TA PO; +D3-5CAP PO; +VENTAER INH; +VITA500C24 PO
== END ==
LOC: M LAB REF 17:04
PROVIDERS: ATTEND Physician Assistant
DX: R30.0 Dysuria (principal)

== ENCOUNTER → 2023-07-12 | Outpatient (CLI) | payer OTHER ==
[2023-07-12 12:03] LABS: ALKALINE PHOSPHATASE 93 U/L (46-116); ALT/SGPT 17 U/L (7.0-40); AST/SGOT 16 U/L (<34); BILIRUBIN,TOTAL 0.2 MG/DL (0.3-1.2); BLOOD UREA NITROGEN 17 MG/DL (9-23); CALCIUM LEVEL 8.5 MG/DL (8.5-10.1); CARBON DIOXIDE LEVEL 25 MMOL/L (20-31); CHLORIDE LEVEL 107 MMOL/L (98-107); CHOLESTEROL LEVEL 134 MG/DL (<200); CREATININE FOR GFR 0.76 MG/DL (0.55-1.30); GLOMERULAR FILTRATION RATE > 60.0 (>51); GLUCOSE, FASTING 128 MG/DL (60-100); HDL CHOLESTEROL 43.2 MG/DL (>40); LDL CHOLESTEROL 74.2 MG/DL (<100); NON-HDL-C 90.8 MG/DL; POTASSIUM SERUM 4.3 MMOL/L (3.5-5.1); SODIUM LEVEL 139 MMOL/L (136-145); TOTAL PROTEIN 6.7 G/DL (5.7-8.2); TRIGLYCERIDES LEVEL 83 MG/DL (<150)
== END ==
LOC: M PLALAB 08:14
PROVIDERS: ATTEND Physician Assistant
DX: I11.9 Hypertensive heart disease without heart failure (principal); E78.00 Pure hypercholesterolemia, unspecified

== ENCOUNTER → 2023-07-12 | Outpatient (CLI) | payer OTHER ==
[2023-07-12 10:48] LABS: BASO # 0.1 10^3/uL (0.0-0.2); BASO % 0.6 % (0.0-1.0); EOS # 0.5 10^3/uL (0.0-0.5); EOS % 4.3 % (0.0-3.0); HEMOGLOBIN 13.1 g/dl (12.0-15.5); LYMPH # 3.2 10^3/uL (1.5-5.0); LYMPH % 28.2 % (24.0-44.0); MEAN CORPUSCULAR HEMOGLOBIN 27.8 pg (27.0-33.0); MONO # 0.6 10^3/uL (0.0-0.8); MONO % 4.9 % (2.0-8.0); NEUTROPHILS % 61.6 % (36.0-66.0); PLATELET COUNT, AUTOMATED 415 10^3/uL (150-450); RED BLOOD COUNT 4.71 10^6/uL (4.00-5.40); WHITE BLOOD COUNT 11.3 10^3/uL (4.0-10.0)
[2023-07-12 11:05] LABS: ALBUMIN 2.9 G/DL (3.2-5.2); ALKALINE PHOSPHATASE 93 U/L (46-116); ALT/SGPT 18 U/L (7.0-40); AST/SGOT 16 U/L (<34); BILIRUBIN,TOTAL 0.2 MG/DL (0.3-1.2); BLOOD UREA NITROGEN 16 MG/DL (9-23); CALCIUM LEVEL 8.5 MG/DL (8.5-10.1); CARBON DIOXIDE LEVEL 26 MMOL/L (20-31); CHLORIDE LEVEL 107 MMOL/L (98-107); CHOLESTEROL LEVEL 135 MG/DL (<200); CHOLESTEROL RISK RATIO 3.13 (<5); CREATININE FOR GFR 0.79 MG/DL (0.55-1.30); GLOMERULAR FILTRATION RATE > 60.0 (>51); GLUCOSE, FASTING 128 MG/DL (60-100); HDL CHOLESTEROL 43.1 MG/DL (>40); LDL CHOLESTEROL 75.1 MG/DL (<100); NON-HDL-C 91.9 MG/DL; POTASSIUM SERUM 4.4 MMOL/L (3.5-5.1); SODIUM LEVEL 140 MMOL/L (136-145); TOTAL PROTEIN 6.7 G/DL (5.7-8.2); TRIGLYCERIDES LEVEL 84 MG/DL (<150)
[2023-07-12 11:37] LABS: HEMOGLOBIN A1c 6.9 % (4.0-6.0)
== END ==
LOC: M PLALAB 08:12
PROVIDERS: ATTEND Physician Assistant
DX: E11.9 Type 2 diabetes mellitus without complications (principal)

== ENCOUNTER → 2023-07-23 | Outpatient (CLI) | payer OTHER ==
[~2023-07-23] MED LIST changes: +LIDOCAINE 1% MDV 20ML VIAL As Ordered ONE; +methylPREDNISolone SUSP 40MG/ML 1ML VIAL (DEPO MEDROL) As Ordered ONE
== END ==
LOC: M IRPRO 13:22
PROVIDERS: ATTEND Physician Assistant Surgical
DX: M79.621 Pain in right upper arm (principal)
CPT/HCPCS: 20550; 76942; J1030

== ENCOUNTER → 2023-08-07 | Outpatient (REF) | payer OTHER ==
[~2023-08-07] MED LIST changes: -LIDOCAINE 1% MDV 20ML VIAL As Ordered ONE; -methylPREDNISolone SUSP 40MG/ML 1ML VIAL (DEPO MEDROL) As Ordered ONE
== END ==
LOC: M SFHCWAGY 17:08
PROVIDERS: ATTEND Nurse Practitioner Family
DX: R35.0 Frequency of micturition (principal); B95.2 Enterococcus as the cause of diseases classified elsewhere

== ENCOUNTER → 2023-08-19 | Outpatient (REF) | payer OTHER | LOC: M LAB REF 16:55 | PROVIDERS: ATTEND Physician Assistant | DX: N39.0 Urinary tract infection, site not specified (principal) ==

== ENCOUNTER 2023-09-03 07:45 | Outpatient (RCR) | payer OTHER | END 2023-09-12 | LOC: M PT 07:45 | PROVIDERS: ATTEND Nurse Practitioner Family | DX: N39.3 Stress incontinence (female) (male) (principal) ==

== ENCOUNTER → 2023-09-26 | Outpatient (CLI) | payer OTHER ==
[~2023-09-26] MED LIST changes: +LISI5TAB11; +TIRZ5PEN
== END ==
LOC: M PLARAD 07:59
PROVIDERS: ATTEND Physician Assistant Surgical
DX: M53.3 Sacrococcygeal disorders, not elsewhere classified (principal); M47.27 Other spondylosis with radiculopathy, lumbosacral region

== ENCOUNTER 2023-10-04 07:40 | Outpatient (RCR) | payer OTHER | END 2023-10-13 | LOC: M PT 07:40 | PROVIDERS: ATTEND Nurse Practitioner Family | DX: N39.3 Stress incontinence (female) (male) (principal) ==

== ENCOUNTER → 2023-10-04 | Outpatient (CLI) | payer OTHER ==
[2023-10-04 13:23] LABS: BASO # 0.1 10^3/uL (0.0-0.2); BASO % 0.6 % (0.0-1.0); EOS # 0.4 10^3/uL (0.0-0.5); EOS % 3.5 % (0.0-3.0); HEMATOCRIT 40.1 % (36.0-47.0); HEMOGLOBIN 12.7 g/dl (12.0-15.5); LYMPH # 2.8 10^3/uL (1.5-5.0); LYMPH % 23.4 % (24.0-44.0); MEAN CORPUSCULAR HEMOGLOBIN 28.6 pg (27.0-33.0); MEAN CORPUSCULAR HGB CONC 31.7 g/dl (32.0-36.5); MEAN CORPUSCULAR VOLUME 90.3 fl (80.0-96.0); MONO # 0.6 10^3/uL (0.0-0.8); MONO % 4.6 % (2.0-8.0); NEUTROPHILS # 8.1 10^3/uL (1.5-8.5); NEUTROPHILS % 67.6 % (36.0-66.0); PLATELET COUNT, AUTOMATED 390 10^3/uL (150-450); RED BLOOD COUNT 4.44 10^6/uL (4.00-5.40); WHITE BLOOD COUNT 11.9 10^3/uL (4.0-10.0)
[2023-10-04 13:26] LABS: CORTISOL BASELINE 10.4 UG/DL (4.3-22.4)
[2023-10-04 13:28] LABS: ALBUMIN 3.4 G/DL (3.2-5.2); ALKALINE PHOSPHATASE 105 U/L (46-116); ALT/SGPT 17 U/L (7.0-40); AST/SGOT 15 U/L (<34); BILIRUBIN,TOTAL 0.4 MG/DL (0.3-1.2); BLOOD UREA NITROGEN 22 MG/DL (9-23); CALCIUM LEVEL 8.9 MG/DL (8.5-10.1); CARBON DIOXIDE LEVEL 27 MMOL/L (20-31); CHLORIDE LEVEL 109 MMOL/L (98-107); CHOLESTEROL LEVEL 130 MG/DL (<200); CHOLESTEROL RISK RATIO 3.75 (<5); CREATININE FOR GFR 0.86 MG/DL (0.55-1.30); GLOMERULAR FILTRATION RATE > 60.0 (>51); GLUCOSE, FASTING 103 MG/DL (60-100); HDL CHOLESTEROL 34.6 MG/DL (>40); IRON (FE) 45 UG/DL (50-170); LDL CHOLESTEROL 75.4 MG/DL (<100); MAGNESIUM LEVEL 1.9 MG/DL (1.8-2.4); NON-HDL-C 95.4 MG/DL; PERCENT SATURATION 13.7 % (13.2-45.0); POTASSIUM SERUM 4.5 MMOL/L (3.5-5.1); SODIUM LEVEL 140 MMOL/L (136-145); TOTAL IRON BINDING CAPACITY 328 UG/DL (250-425); TOTAL PROTEIN 7.1 G/DL (5.7-8.2); TRIGLYCERIDES LEVEL 100 MG/DL (<150)
[2023-10-04 13:30] LABS: FERRITIN 306.9 NG/ML (7.3-270.7)
[2023-10-04 13:45] LABS: HEMOGLOBIN A1c 6.2 % (4.0-6.0)
[2023-10-04 13:56] LABS: CREATININE, URINE 228.4 MG/DL
== END ==
LOC: M PLALAB 10:07
PROVIDERS: ATTEND Physician Assistant
DX: E11.9 Type 2 diabetes mellitus without complications (principal); I10 Essential (primary) hypertension; Z79.899 Other long term (current) drug therapy

== ENCOUNTER → 2023-10-15 | Outpatient (CLI) | payer OTHER ==
[~2023-10-15] MED LIST changes: +ISOVUE-300 61% 100ML VIAL As Ordered ONE; +LIDOCAINE 1% MDV 20ML VIAL As Ordered ONE; +PROHANCE 279.3MG/ML 5ML VIAL As Ordered ONE; +THERTAB52 PO
== END ==
LOC: M RAD 06:29
PROVIDERS: ATTEND Physician Assistant Surgical
DX: M25.551 Pain in right hip (principal)
CPT/HCPCS: 27093; 73723; 77002; A9576; Q9967

== ENCOUNTER → 2023-10-18 | Outpatient (CLI) | payer OTHER | LOC: M RAD 06:34 | PROVIDERS: ATTEND Physician Assistant Surgical | DX: M25.552 Pain in left hip (principal) | CPT/HCPCS: 27093; 73723; 77002; A9576; Q9967 ==

== ENCOUNTER → 2023-11-01 | Outpatient (CLI) | payer OTHER ==
[~2023-11-01] MED LIST changes: -ISOVUE-300 61% 100ML VIAL As Ordered ONE; -LIDOCAINE 1% MDV 20ML VIAL As Ordered ONE; -PROHANCE 279.3MG/ML 5ML VIAL As Ordered ONE
== END ==
LOC: M PLAIMG 09:53
PROVIDERS: ATTEND Internal Medicine Pulmonary Disease
DX: J45.20 Mild intermittent asthma, uncomplicated (principal)

== ENCOUNTER 2023-11-08 07:45 | Outpatient (RCR) | payer OTHER ==
[~2023-11-08 07:45] MED LIST changes: -BREO1INH3; +BREO1INH3 INH
[2023-11-14] MEDS ORDERED: TIRZ10PE SC (10:34)
[2023-11-14] MEDS ORDERED: ALPR1TAB3 PO (10:34)
[2023-11-14] MEDS ORDERED: ALBU2.5V10 INH (10:34)
[2023-11-14] MEDS ORDERED: MONT10TA97 PO (10:34)
[2023-11-14] MEDS ORDERED: GABA600T4 PO (10:34)
[2023-11-14] MEDS ORDERED: LISI10TA22 PO (10:34)
[2023-11-14] MEDS ORDERED: ESTR0.1C5 VG (10:34)
[2023-11-14] MEDS ORDERED: METF-838 PO (10:34)
[2023-11-14] MEDS ORDERED: ROSU20TA61 PO (10:34)
[2023-11-14] MEDS ORDERED: mirena IU (10:38)
[2023-11-14] MEDS ORDERED: DESL5TAB11 PO (10:38)
== END 2023-11-12 ==
LOC: M PT 07:45
PROVIDERS: ATTEND Nurse Practitioner Family
DX: N39.3 Stress incontinence (female) (male) (principal)

== ENCOUNTER 2023-11-15 07:44 | Outpatient (RCR) | payer OTHER ==
[~2023-11-15 07:44] MED LIST changes: +ALBU2.5V10 INH; +ALPR1TAB3 PO; +DESL5TAB11 PO; +ESTR0.1C5 VG; +GABA600T4 PO; +LISI10TA22 PO; +METF-838 PO; +MONT10TA97 PO; +ROSU20TA61 PO; +TIRZ10PE SC; +mirena IU
== END 2023-12-13 ==
LOC: M PT 07:44
PROVIDERS: ATTEND Nurse Practitioner Family
DX: N39.3 Stress incontinence (female) (male) (principal)

== ENCOUNTER 2023-11-27 09:14 | Day surgery (SDC) | payer OTHER ==
[~2023-11-27] VITALS: Ht 172.7 cm; Wt 95.6 kg
[2023-11-27] MEDS ORDERED: MIDAZOLAM INJ 2MG/2ML VIAL As Ordered ONE (09:36)
[2023-11-27] MEDS ORDERED: fentaNYL 250 MCG/5 ML INJECTION As Ordered ONE (09:36)
[2023-11-27] MEDS ORDERED: KETOROLAC 60MG 2ML VIAL As Ordered ONE (09:36)
[2023-11-27] MEDS ORDERED: LIDOCAINE 2% 100MG/5ML SDV (FOR ANES.) As Ordered ONE (09:37)
[2023-11-27] MEDS ORDERED: ONDANSETRON 4MG 2ML VIAL As Ordered ONE (09:37)
[2023-11-27] MEDS ORDERED: propofoL 200 MG/20 ML VIAL As Ordered ONE (09:37)
[2023-11-27] MEDS ORDERED: ACETAMINOPHEN 1000MG 100ML IV BAG As Ordered ONE (09:38)
[2023-11-27 09:50] LABS: HEMATOCRIT 39.9 % (36.0-47.0); HEMOGLOBIN 12.8 g/dl (12.0-15.5); MEAN CORPUSCULAR HEMOGLOBIN 28.2 pg (27.0-33.0); MEAN CORPUSCULAR HGB CONC 32.1 g/dl (32.0-36.5); MEAN CORPUSCULAR VOLUME 87.9 fl (80.0-96.0); PLATELET COUNT, AUTOMATED 309 10^3/uL (150-450); RED BLOOD COUNT 4.54 10^6/uL (4.00-5.40); WHITE BLOOD COUNT 10.3 10^3/uL (4.0-10.0)
[2023-11-27] MEDS: ESTROGENS VAGINAL CREAM 30GM As Ordered ONE (10:44)
[2023-11-27] MEDS: ceFAZolin 2 GM/D5W 50 ML IV BAG As Ordered ONE (11:10)
[2023-11-27] MEDS ORDERED: METOCLOPRAMIDE INJ 10MG/2ML VIAL As Ordered ONE (11:26)
[2023-11-27] MEDS ORDERED: LR 1,000 ML IV SCH ×2 (11:55→12:50)
[2023-11-27] MEDS ORDERED: ONDANSETRON 4MG 2ML VIAL IV PRN (11:55)
[2023-11-27] MEDS ORDERED: MORPHINE 2 MG/ML 1ML VIAL IV PRN (11:55)
[2023-11-27] MEDS ORDERED: oxyCODONE 5MG TAB PO PRN (11:55)
[2023-11-27] MEDS ORDERED: fentaNYL 100 MCG/2 ML INJECTION IV PRN (11:55)
[2023-11-27 13:05] VITALS: BP 137/80; TEMP 97; O2SAT 97
[2023-11-27] MEDS ORDERED: ACETAMINOPHEN 500 MG TAB PO ONE (18:00)
== END 2023-11-27 13:11 | disposition home or self-care (01) ==
LOC: M SDC 09:14
PROVIDERS: ATTEND Specialist
DX: T83.711A Erosion of implanted vaginal mesh to surrounding organ or tissue, initial encounter (principal); I10 Essential (primary) hypertension; E78.5 Hyperlipidemia, unspecified; E11.9 Type 2 diabetes mellitus without complications; K57.92 Diverticulitis of intestine, part unspecified, without perforation or abscess without bleeding; J45.909 Unspecified asthma, uncomplicated; G47.33 Obstructive sleep apnea (adult) (pediatric); Z79.51 Long term (current) use of inhaled steroids; Z79.84 Long term (current) use of oral hypoglycemic drugs; Z79.899 Other long term (current) drug therapy
CPT/HCPCS: 36415; 57295; 85027; 88300; 93005; J0131; J0665; J0690; J1100; J1885; J2250; J2405; J2765; J3010

== ENCOUNTER → 2023-12-17 | Outpatient (CLI) | payer OTHER | LOC: M WHC 10:04 | PROVIDERS: ATTEND Nurse Practitioner Family | DX: Z12.31 Encounter for screening mammogram for malignant neoplasm of breast (principal); R92.323 Mammographic fibroglandular density, bilateral breasts ==

== ENCOUNTER → 2023-12-31 | Outpatient (REF) | payer OTHER | LOC: M SFHCWAGY 12:28 | PROVIDERS: ATTEND Nurse Practitioner Family | DX: R39.15 Urgency of urination (principal) ==

== ENCOUNTER → 2024-01-14 | Outpatient (REF) | payer OTHER | LOC: M SFHCWAGY 12:52 | PROVIDERS: ATTEND Nurse Practitioner Family | DX: R39.15 Urgency of urination (principal) ==

== ENCOUNTER → 2024-02-05 | Outpatient (CLI) | payer OTHER | LOC: M WHC 11:09 | PROVIDERS: ATTEND Nurse Practitioner Family | DX: N64.4 Mastodynia (principal) ==

== ENCOUNTER 2024-02-07 08:22 | Outpatient (RCR) | payer OTHER | END 2024-02-12 | LOC: M PT 08:22 | PROVIDERS: ATTEND Nurse Practitioner Family | DX: N39.3 Stress incontinence (female) (male) (principal) ==

== ENCOUNTER 2024-03-06 11:30 | Outpatient (RCR) | payer OTHER ==
[~2024-03-06 11:30] MED LIST changes: +GABA-1490 PO; -GABA600T4 PO
== END 2024-03-14 ==
LOC: M PT 11:30
PROVIDERS: ATTEND Nurse Practitioner Family
DX: N39.3 Stress incontinence (female) (male) (principal)

== ENCOUNTER → 2024-03-23 | Outpatient (CLI) | payer OTHER ==
[2024-03-23 11:52] LABS: BASO # 0.1 10^3/uL (0.0-0.2); BASO % 0.8 % (0.0-1.0); EOS # 0.4 10^3/uL (0.0-0.5); EOS % 2.5 % (0.0-3.0); HEMATOCRIT 40.5 % (36.0-47.0); LYMPH # 4.1 10^3/uL (1.5-5.0); LYMPH % 28.9 % (24.0-44.0); MEAN CORPUSCULAR HEMOGLOBIN 28.9 pg (27.0-33.0); MEAN CORPUSCULAR HGB CONC 32.1 g/dl (32.0-36.5); MONO # 0.9 10^3/uL (0.0-0.8); MONO % 6.1 % (2.0-8.0); NEUTROPHILS # 8.6 10^3/uL (1.5-8.5); NEUTROPHILS % 61.3 % (36.0-66.0); PLATELET COUNT, AUTOMATED 323 10^3/uL (150-450); WHITE BLOOD COUNT 14.1 10^3/uL (4.0-10.0)
[2024-03-23 12:21] LABS: ALBUMIN 3.2 G/DL (3.2-5.2); ALKALINE PHOSPHATASE 102 U/L (46-116); ALT/SGPT 22 U/L (7.0-40); AST/SGOT 18 U/L (<34); BILIRUBIN,TOTAL 0.2 MG/DL (0.3-1.2); BLOOD UREA NITROGEN 16 MG/DL (9-23); CALCIUM LEVEL 9.7 MG/DL (8.5-10.1); CARBON DIOXIDE LEVEL 28 MMOL/L (20-31); CHLORIDE LEVEL 107 MMOL/L (98-107); CHOLESTEROL LEVEL 147 MG/DL (<200); CHOLESTEROL RISK RATIO 2.83 (<5); GLOMERULAR FILTRATION RATE > 60.0 (>51); GLUCOSE, FASTING 91 MG/DL (60-100); HDL CHOLESTEROL 51.9 MG/DL (>40); LDL CHOLESTEROL 73.7 MG/DL (<100); NON-HDL-C 95.1 MG/DL; POTASSIUM SERUM 3.8 MMOL/L (3.5-5.1); SODIUM LEVEL 140 MMOL/L (136-145); TRIGLYCERIDES LEVEL 107 MG/DL (<150)
[2024-03-23 12:23] LABS: FREE T4 0.93 NG/DL (0.89-1.76)
[2024-03-23 12:44] LABS: HEMOGLOBIN A1c 5.5 % (4.0-6.0)
== END ==
LOC: M PLALAB 07:59
PROVIDERS: ATTEND Physician Assistant
DX: E11.9 Type 2 diabetes mellitus without complications (principal); I10 Essential (primary) hypertension

== ENCOUNTER 2024-03-31 08:30 | Outpatient (RCR) | payer OTHER | END 2024-04-13 | LOC: M PT 08:30 | PROVIDERS: ATTEND Nurse Practitioner Family | DX: N39.3 Stress incontinence (female) (male) (principal) ==

== ENCOUNTER 2024-05-05 07:45 | Outpatient (RCR) | payer OTHER | END 2024-05-14 | LOC: M PT 07:45 | PROVIDERS: ATTEND Nurse Practitioner Family | DX: N39.3 Stress incontinence (female) (male) (principal) ==

== ENCOUNTER → 2024-05-05 | Outpatient (CLI) | payer OTHER ==
[~2024-05-05] MED LIST changes: +LISI20TA33; -ROSU20TA61 PO; +ROSU20TA86 PO
[2024-05-05 16:03] LABS: BLOOD UREA NITROGEN 17 MG/DL (9-23); CALCIUM LEVEL 9.4 MG/DL (8.5-10.1); CARBON DIOXIDE LEVEL 27 MMOL/L (20-31); CHLORIDE LEVEL 106 MMOL/L (98-107); CREATININE FOR GFR 0.96 MG/DL (0.55-1.30); GLOMERULAR FILTRATION RATE > 60.0 (>51); GLUCOSE, FASTING 124 MG/DL (60-100); MAGNESIUM LEVEL 1.8 MG/DL (1.8-2.4); POTASSIUM SERUM 4.6 MMOL/L (3.5-5.1); SODIUM LEVEL 138 MMOL/L (136-145)
== END ==
LOC: M PLALAB 10:21
PROVIDERS: ATTEND Physician Assistant
DX: I11.9 Hypertensive heart disease without heart failure (principal); E83.42 Hypomagnesemia

== ENCOUNTER → 2024-06-30 | Outpatient (CLI) | payer OTHER ==
[~2024-06-30] MED LIST changes: +METF-1156 PO; -METF-817 PO
[2024-06-30 15:57] LABS: ALBUMIN 3.3 G/DL (3.2-5.2); ALKALINE PHOSPHATASE 108 U/L (35-104); ALT/SGPT 26 U/L (7.0-40); AST/SGOT 19 U/L (<34); BILIRUBIN,TOTAL 0.3 MG/DL (0.3-1.2); BLOOD UREA NITROGEN 21 MG/DL (9-23); C REACTIVE PROTEIN QUANTITATIV 0.83 MG/DL (<1.0); CARBON DIOXIDE LEVEL 28 MMOL/L (20-31); CHLORIDE LEVEL 105 MMOL/L (98-107); CREATININE FOR GFR 0.78 MG/DL (0.55-1.30); GLOMERULAR FILTRATION RATE > 60.0 (>51); GLUCOSE, FASTING 83 MG/DL (60-100); POTASSIUM SERUM 4.7 MMOL/L (3.5-5.1); SODIUM LEVEL 140 MMOL/L (136-145); TOTAL PROTEIN 7.8 G/DL (5.7-8.2)
[2024-06-30 16:10] LABS: BASO # 0.1 10^3/uL (0.0-0.2); BASO % 0.7 % (0.0-1.0); EOS # 0.3 10^3/uL (0.0-0.5); HEMATOCRIT 42.2 % (36.0-47.0); HEMOGLOBIN 13.7 g/dl (12.0-15.5); LYMPH # 3.4 10^3/uL (1.5-5.0); LYMPH % 32.1 % (24.0-44.0); MEAN CORPUSCULAR HEMOGLOBIN 28.6 pg (27.0-33.0); MEAN CORPUSCULAR HGB CONC 32.5 g/dl (32.0-36.5); MEAN CORPUSCULAR VOLUME 88.1 fl (80.0-96.0); MONO # 0.6 10^3/uL (0.0-0.8); MONO % 5.6 % (2.0-8.0); NEUTROPHILS # 6.2 10^3/uL (1.5-8.5); NEUTROPHILS % 58.4 % (36.0-66.0); PLATELET COUNT, AUTOMATED 410 10^3/uL (150-450); RED BLOOD COUNT 4.79 10^6/uL (4.00-5.40); WHITE BLOOD COUNT 10.7 10^3/uL (4.0-10.0)
[2024-06-30 16:26] LABS: ERYTHROCYTE SEDIMENTATION RATE 50 mm/hr (0-30)
== END ==
LOC: M PLALAB 12:08
PROVIDERS: ATTEND Physician Assistant
DX: B00.89 Other herpesviral infection (principal)

== ENCOUNTER → 2024-08-04 | Outpatient (CLI) | payer OTHER ==
[2024-08-04 10:27] LABS: BASO # 0.1 10^3/uL (0.0-0.2); BASO % 0.6 % (0.0-1.0); EOS # 0.2 10^3/uL (0.0-0.5); EOS % 1.6 % (0.0-3.0); HEMATOCRIT 42.4 % (36.0-47.0); HEMOGLOBIN 13.6 g/dl (12.0-15.5); LYMPH # 3.2 10^3/uL (1.5-5.0); LYMPH % 29.3 % (24.0-44.0); MEAN CORPUSCULAR HEMOGLOBIN 28.7 pg (27.0-33.0); MEAN CORPUSCULAR HGB CONC 32.1 g/dl (32.0-36.5); MEAN CORPUSCULAR VOLUME 89.5 fl (80.0-96.0); MONO # 0.6 10^3/uL (0.0-0.8); MONO % 5.1 % (2.0-8.0); NEUTROPHILS # 6.8 10^3/uL (1.5-8.5); NEUTROPHILS % 63.1 % (36.0-66.0); PLATELET COUNT, AUTOMATED 397 10^3/uL (150-450); RED BLOOD COUNT 4.74 10^6/uL (4.00-5.40); WHITE BLOOD COUNT 10.8 10^3/uL (4.0-10.0)
[2024-08-04 10:46] LABS: CREATININE, URINE 175.6 MG/DL; MAU/CREAT RATIO 3.4 MCG/MG (0.0-30.0)
[2024-08-04 10:47] LABS: ALBUMIN 3.1 G/DL (3.2-5.2); ALKALINE PHOSPHATASE 92 U/L (35-104); ALT/SGPT 26 U/L (7.0-40); AST/SGOT 20 U/L (<34); BILIRUBIN,TOTAL 0.3 MG/DL (0.3-1.2); BLOOD UREA NITROGEN 19 MG/DL (9-23); CALCIUM LEVEL 9.5 MG/DL (8.5-10.1); CARBON DIOXIDE LEVEL 29 MMOL/L (20-31); CHLORIDE LEVEL 105 MMOL/L (98-107); CHOLESTEROL LEVEL 168 MG/DL (<200); CHOLESTEROL RISK RATIO 2.98 (<5); CREATININE FOR GFR 0.83 MG/DL (0.55-1.30); GLOMERULAR FILTRATION RATE > 60.0 (>51); GLUCOSE, FASTING 99 MG/DL (60-100); HDL CHOLESTEROL 56.3 MG/DL (>40); LDL CHOLESTEROL 94.9 MG/DL (<100); NON-HDL-C 111.7 MG/DL; POTASSIUM SERUM 4.4 MMOL/L (3.5-5.1); SODIUM LEVEL 140 MMOL/L (136-145); TOTAL PROTEIN 7.2 G/DL (5.7-8.2); TRIGLYCERIDES LEVEL 84 MG/DL (<150)
[2024-08-04 10:50] LABS: HEMOGLOBIN A1c 5.9 % (4.0-6.0)
== END ==
LOC: M PLALAB 08:18
PROVIDERS: ATTEND Physician Assistant
DX: E11.9 Type 2 diabetes mellitus without complications (principal); E78.5 Hyperlipidemia, unspecified

== ENCOUNTER → 2024-08-07 | Outpatient (REF) | payer OTHER ==
[2024-08-07 16:44] LABS: APPEARANCE, URINE HAZY (CLEAR); BACTERIA, URINE AUTO NEGATIVE (NEGATIVE); BILIRUBIN, URINE AUTO NEGATIVE (NEGATIVE); BLOOD, URINE BLOOD NEGATIVE (NEGATIVE); COLOR, URINE YELLOW (YELLOW); GLUCOSE, URINE (UA) AUTO NEGATIVE (NEGATIVE); KETONE, URINE AUTO NEGATIVE (NEGATIVE); LEUKOCYTE ESTERASE, URINE AUTO TRACE (NEGATIVE); MUCUS, URINE SMALL (NEGATIVE); NITRITE, URINE AUTO NEGATIVE (NEGATIVE); PROTEIN, URINE AUTO NEGATIVE (NEGATIVE); RBC, URINE AUTO 1 /HPF (0-3); SQUAMOUS EPITHELIAL CELL UR AU 2 /HPF (0-6); UROBILINOGEN, URINE AUTO 0.2 mg/dL (0.0-2.0); WBC, URINE AUTO 4 /HPF (0-3)
== END ==
LOC: M LAB REF 15:02
PROVIDERS: ATTEND Physician Assistant
DX: R30.0 Dysuria (principal)

== ENCOUNTER → 2024-09-29 | Outpatient (CLI) | payer OTHER ==
[2024-09-29 18:24] LABS: BLOOD UREA NITROGEN 23 MG/DL (9-23); CARBON DIOXIDE LEVEL 25 MMOL/L (20-31); CHLORIDE LEVEL 106 MMOL/L (98-107); CREATININE FOR GFR 0.91 MG/DL (0.55-1.30); GLOMERULAR FILTRATION RATE > 60.0 (>51); GLUCOSE, FASTING 76 MG/DL (60-100); MAGNESIUM LEVEL 1.8 MG/DL (1.8-2.4); POTASSIUM SERUM 3.9 MMOL/L (3.5-5.1); SODIUM LEVEL 141 MMOL/L (136-145)
== END ==
LOC: M PLALAB 15:30
PROVIDERS: ATTEND Physician Assistant
DX: I11.9 Hypertensive heart disease without heart failure (principal); E83.42 Hypomagnesemia

== ENCOUNTER → 2024-11-11 | Outpatient (REF) | payer OTHER ==
[~2024-11-11] MED LIST changes: +AMLO-751 PO; -AMLO10TA PO
[2024-11-11 15:40] LABS: APPEARANCE, URINE CLOUDY (CLEAR); BACTERIA, URINE AUTO 1+ (NEGATIVE); BILIRUBIN, URINE AUTO NEGATIVE (NEGATIVE); BLOOD, URINE BLOOD 1+ (NEGATIVE); COLOR, URINE AMBER (YELLOW); GLUCOSE, URINE (UA) AUTO NEGATIVE (NEGATIVE); KETONE, URINE AUTO NEGATIVE (NEGATIVE); LEUKOCYTE ESTERASE, URINE AUTO 2+ (NEGATIVE); MUCUS, URINE SMALL (NEGATIVE); NITRITE, URINE AUTO NEGATIVE (NEGATIVE); PROTEIN, URINE AUTO 2+ mg/dL (NEGATIVE); RBC, URINE AUTO 26 /HPF (0-3); SPECIFIC GRAVITY URINE AUTO 1.018 (1.002-1.035); SQUAMOUS EPITHELIAL CELL UR AU 1 /HPF (0-6); UROBILINOGEN, URINE AUTO 0.2 mg/dL (0.0-2.0); WBC, URINE AUTO TNTC /HPF (0-3)
== END ==
LOC: M LAB REF 15:09
PROVIDERS: ATTEND Physician Assistant
DX: R30.0 Dysuria (principal)

== ENCOUNTER → 2024-11-23 | Outpatient (REF) | payer OTHER | LOC: M LAB REF 12:47 | PROVIDERS: ATTEND Physician Assistant | DX: N39.0 Urinary tract infection, site not specified (principal) ==

== ENCOUNTER → 2025-01-19 | Outpatient (CLI) | payer OTHER ==
[2025-01-19 11:06] LABS: BASO # 0.1 10^3/uL (0.0-0.2); BASO % 1.0 % (0.0-1.0); EOS # 0.3 10^3/uL (0.0-0.5); EOS % 3.6 % (0.0-3.0); LYMPH # 2.5 10^3/uL (1.5-5.0); LYMPH % 28.8 % (24.0-44.0); MONO # 0.4 10^3/uL (0.0-0.8); MONO % 4.9 % (2.0-8.0); NEUTROPHILS # 5.4 10^3/uL (1.5-8.5); NEUTROPHILS % 61.5 % (36.0-66.0)
[2025-01-19 11:26] LABS: ALT/SGPT 30.0 U/L (7.0-40); AST/SGOT 44.0 U/L (<34); CALCIUM LEVEL 9.5 MG/DL (8.5-10.1); CARBON DIOXIDE LEVEL 22.0 MMOL/L (20-31); CHLORIDE LEVEL 106.0 MMOL/L (98-107); CHOLESTEROL LEVEL 132.0 MG/DL (<200); CHOLESTEROL RISK RATIO 3.01 (<5); CREATININE FOR GFR 0.96 MG/DL (0.55-1.30); GLOMERULAR FILTRATION RATE 70.3 (>51); LDL CHOLESTEROL 68.0 MG/DL (<100); NON-HDL-C 88.2 MG/DL; POTASSIUM SERUM 5.2 MMOL/L (3.5-5.1); SODIUM LEVEL 139.0 MMOL/L (136-145); TRIGLYCERIDES LEVEL 101.0 MG/DL (<150)
[2025-01-19 11:31] LABS: ESTIMATED AVERAGE GLUCOSE 105.0 MG/DL (60-110)
== END ==
LOC: M PLALAB 07:55
PROVIDERS: ATTEND Physician Assistant
DX: E11.9 Type 2 diabetes mellitus without complications (principal); I10 Essential (primary) hypertension

== ENCOUNTER → 2025-01-19 | Outpatient (CLI) | payer OTHER ==
[2025-01-19 11:29] LABS: FREE T4 1.17 NG/DL (0.89-1.76)
[2025-01-19 11:30] LABS: LUTEINIZING HORMONE 28.3 mIU/ML; PROLACTIN 9.00 NG/ML
[2025-01-19 11:31] LABS: ESTRADIOL 31.2 PG/ML
[2025-01-19 11:32] LABS: PROGESTERONE < 0.21 NG/ML
[2025-01-19 11:33] LABS: CORTISOL AM 20.2 UG/DL (4.3-22.4)
[2025-01-24 13:52] LABS: TESTOSTERONE FREE (DIRECT) 1.3 pg/mL (0.1-6.4); TESTOSTERONE TOTAL FOR T&D 11.0 ng/dL (2-45)
== END ==
LOC: M PLALAB 07:57
PROVIDERS: ATTEND Nurse Practitioner Family
DX: Z01.419 Encounter for gynecological examination (general) (routine) without abnormal findings (principal); R53.83 Other fatigue

== ENCOUNTER → 2025-04-06 | Outpatient (CLI) | payer OTHER ==
[~2025-04-06] MED LIST changes: +SENN-225 PO; -SENO8.6T5 PO
== END ==
LOC: M WUC 13:49
PROVIDERS: ATTEND Nurse Practitioner Family
DX: R07.89 Other chest pain (principal)